=== PATIENT | male | born 1945 | race Two or more races ===

== ENCOUNTER 2024-09-16 15:43 | Inpatient (IN) | payer MEDICARE ==
[2024-09-16] MEDS: SODIUM CHLORIDE 0.9% 1,000 ML IV ONE (16:12)
[2024-09-16] MEDS: LORazepam 2 MG/ML INJ IV STA (16:13)
[2024-09-16 16:16] LABS: Basophils % (A) 0 %; Eosinophils # (A) 0.2 k/uL (0-0.7); Eosinophils % (A) 2 %; HCT 40.8 % (39.0-53.0); HGB 13.4 gm/dL (13.0-17.5); Lymphocytes # (A) 1.5 k/uL (1.0-4.8); Lymphocytes % (A) 14 %; MCH 30.3 pg (25.0-35.0); MCHC 32.7 g/dL (31.0-37.0); MCV 92.6 fL (80.0-100.0); Mean Platelet Volume 6.6; Monocytes # (A) 0.5 k/uL (0-1.0); Monocytes % (A) 5 %; Neutrophils % (A) 77 %; Platelet Count 258 k/uL (150-450); RBC 4.41 m/uL (4.30-5.90); RDW 14.6 % (11.5-15.5); WBC 10.4 k/uL (3.8-10.6)
[2024-09-16 16:22] LABS: Appearance,Urine Clear (Clear); Bilirubin,Urine Negative (Negative); Blood,Urine Negative (Negative); Color,Urine Colorless; Glucose,Urine (UA) Negative (Negative); Ketones,Urine Negative (Negative); Leukocyte Esterase,Urine Negative (Negative); Nitrite,Urine Negative (Negative); PH, Urine 8.5 (5.0-8.0); Protein,Urine Negative (Negative); Specific Gravity,Urine 1.013 (1.001-1.035); Urobilinogen,Urine <2.0 mg/dL (<2.0)
[2024-09-16 16:35] LABS: ALT 27 U/L (4-49); AST 24 U/L (17-59); African American GFR (CKD) >90 (>60 ml/min/1.73 sqM); Albumin 4.1 g/dL (3.5-5.0); Alcohol <10 mg/dL; Alkaline Phosphatase 65 U/L (38-126); Anion Gap 8 mmol/L; Blood Urea Nitrogen 30 mg/dL (9-20); Calcium 9.6 mg/dL (8.4-10.2); Carbon Dioxide 22 mmol/L (22-30); Chloride 110 mmol/L (98-107); Glucose 87 mg/dL (74-99); Non-African American GFR(CKD) >90 (>60 ml/min/1.73 sqM); Potassium 3.7 mmol/L (3.5-5.1); Sodium 140 mmol/L (137-145); Total Bilirubin 1.2 mg/dL (0.2-1.3); Total Protein 6.4 g/dL (6.3-8.2)
--- NOTE | 2024-09-16 16:37 | ED ---
Altered Mental Status HPI - General Chief Complaint: Altered Mental Status Stated Complaint: AMS Time Seen by Provider: 09/16/24 16:03 Source: EMS, RN notes reviewed, old records reviewed Mode of arrival: EMS - History of Present Illness Initial Comments: This is a 79-year-old male for ANO x 1 unresponsiveness altered mental status combativeness and not following directions or commands, patient is allegedly ANO x 3 at baseline and currently not appropriate MD Complaint: altered mental status, confusion, decreased responsiveness -: unknown Severity: severe Consistency of Symptoms: getting worse Associated Symptoms: denies other symptoms - Related Data Home Medications Medication Instructions Recorded Confirmed Aspirin EC [Ecotrin Low Dose] 81 mg PO DAILY 09/17/24 09/17/24 Losartan Potassium 100 mg PO DAILY 09/17/24 09/17/24 Mesalamine 1.2 gm PO DAILY 09/17/24 09/17/24 Vitamin B Complex 1 cap PO DAILY 09/17/24 09/17/24 Previous Rx's Medication Instructions Recorded OLANZapine [ZyPREXA] 2.5 mg PO HS tab 09/23/24 OLANZapine [ZyPREXA] 2.5 mg PO TID PRN tab 09/23/24 Allergies Allergy/AdvReac Type Severity Reaction Status Date / Time No Known Allergies Allergy Unverified 09/17/24 13:06 Review of Systems ROS Statement: Those systems with pertinent positive or pertinent negative responses have been documented in the HPI. ROS Other: All systems not noted in ROS Statement are negative. Past Medical History History of Any Multi-Drug Resistant Organisms: None Reported Past Psychological History: Unable to Obtain Smoking Status: Unknown if ever smoked Past Alcohol Use History: Unable to Obtain Past Drug Use History: Unable to Obtain General Exam General appearance: alert, in no apparent distress Head exam: Present: atraumatic, normocephalic, normal inspection Eye exam: Present: normal appearance, PERRL, EOMI. Absent: scleral icterus, conjunctival injection, periorbital swelling ENT exam: Present: normal exam, mucous membranes moist Neck exam: Present: normal inspection. Absent: tenderness, meningismus, lymphadenopathy Respiratory exam: Present: normal lung sounds bilaterally. Absent: respiratory distress, wheezes, rales, rhonchi, stridor Cardiovascular Exam: Present: regular rate, normal rhythm, normal heart sounds. Absent: systolic murmur, diastolic murmur, rubs, gallop, clicks GI/Abdominal exam: Present: soft, normal bowel sounds. Absent: distended, tenderness, guarding, rebound, rigid Extremities exam: Present: normal inspection, full ROM, normal capillary refill. Absent: tenderness, pedal edema, joint swelling, calf tenderness Back exam: Present: normal inspection Neurological exam: Present: alert, oriented X3, CN II-XII intact Psychiatric exam: Present: normal affect, normal mood Skin exam: Present: warm, dry, intact, normal color. Absent: rash Course Vital Signs 09/16/24 09/16/24 09/16/24 15:44 18:00 20:00 Temperature 97.7 F Pulse Rate 92 60 66 Respiratory 18 16 18 Rate Blood Pressure 165/90 137/86 142/98 O2 Sat by Pulse 98 98 96 Oximetry 09/16/24 21:43 Temperature Pulse Rate 62 Respiratory 18 Rate Blood Pressure 161/81 O2 Sat by Pulse 96 Oximetry - Reevaluation(s) Reevaluation #1: 09/16/24 20:21 Medical records reviewed Reevaluation #2: 09/16/24 20:21 Patient symptoms unchanged Reevaluation #3: 09/16/24 20:21 Patient informed of results and questions answered Reevaluation #4: Was pt. sent in by a medical professional or institution (, PA, PHOTOGRAPHER'S MODEL, urgent care, hospital, or long-term...) When possible be specific @ -no Did you speak to anyone other than the patient for history (EMS, parent, family, police, friend...)? What history was obtained from this source @ -no Did you review nursing and triage notes (agree or disagree)? Why? @ -agree Are old charts reviewed (outside hosp., previous admission, EMS record, old EKG, old radiological studies, urgent care reports/EKG's, long-term records)? Report findings @ -yes Differential Diagnosis (chest pain, altered mental status, abdominal pain women, abdominal pain men, vaginal bleeding, weakness, fever, dyspnea, syncope, headache, dizziness, GI bleed, back pain, seizure, CVA, palpatations, mental health, musculoskeletal)? @ -prior EKG interpreted by me (3pts min.). @ -yes X-rays interpreted by me (1pt min.). @ -Yes negative for acute disease CT interpreted by me (1pt min.). @ -Yes negative for acute disease U/S interpreted by me (1pt. min.). @ -no What testing was considered but not performed or refused? (CT, X-rays, U/S, labs )? Why? @ -none What meds were considered but not given or refused? Why? @ -none Did you discuss the management of the patient with other professionals (professionals i.e. DrDiane, PA, PHOTOGRAPHER'S MODEL, lab, RT, psych nurse, social worker masters, railroad operating engineer, teacher, postal sorting officer, casey saw operator)? Give summary @ -no Was smoking cessation discussed for >3mins.? @ -no Was critical care preformed (if so, how long)? @ -no Were there social determinants of health that impacted care today? How? (Homelessness, low income, unemployed, alcoholism, drug addiction, transportation, low edu. Level, literacy, decrease access to med. care, [facility], rehab)? @ -none Was there de-escalation of care discussed even if they declined (Discuss DNR or withdrawal of care, Hospice)? DNR status @ -no What co-morbidities impacted this encounter? (DM, HTN, Smoking, COPD, CAD, Cancer, CVA, ARF, Chemo, Hep., AIDS, mental health diagnosis, sleep apnea, morbid obesity)? @ -none Was patient admitted / discharged? Hospital course, mention meds given and route, prescriptions, significant lab abnormalities, going to OR and other pertinent info. @ - 79 male to ER for evaluation of altered mental status will admit for further evaluation regards to altered mental status Admit Undiagnosed new problem with uncertain prognosis? @ -no Drug Therapy requiring intensive monitoring for toxicity (Heparin, Nitro, Insulin, Cardizem)? @ -no Were any procedures done? @ -no Diagnosis/symptom? @ -Altered mental status Acute, or Chronic, or Acute on Chronic? @ -Acute Uncomplicated (without systemic symptoms) or Complicated (systemic symptoms)? @ -Complicated Side effects of treatment? @ -no Exacerbation, Progression, or Severe Exacerbation? @ -exacerbation Poses a threat to life or bodily function? How? (Chest pain, [place], [place], pneumonia, PE, COPD, DKA, ARF, appy, cholecystitis, CVA, Diverticulitis, Homicidal, Suicidal, threat to staff... and all critical care pts) @ -yes extremes of age Reevaluation #5: Differential Altered Mental Status: Hypoglycemia, DKA, hypercapnia, ETOH, overdose, CO poisoning, trauma, myxedema coma, HTN encephalopathy, infection, encephalitis, psychosis, intercranial hemorrhage, hepatic encephalopathy, meningitis, CVA, this is not meant to be an all-inclusive list - Consultations Consultation #1: Spoke with Dr. Abdullahi who agrees to admit this patient Medical Decision Making - Medical Decision Making 79 male to ER for evaluation of altered mental status will admit for further evaluation regards to altered mental status - Lab Data Result diagrams: 09/17/24 02:56 09/21/24 03:44 Lab Results 09/16/24 09/16/24 09/16/24 Range/Units 16:08 16:08 16:08 WBC 10.4 (3.8-10.6) k/uL RBC 4.41 (4.30-5.90) m/uL Hgb 13.4 (13.0-17.5) gm/dL Hct 40.8 (39.0-53.0) % MCV 92.6 (80.0-100.0) fL MCH 30.3 (25.0-35.0) pg MCHC 32.7 (31.0-37.0) g/dL RDW 14.6 (11.5-15.5) % Plt Count 258 (150-450) k/uL MPV 6.6 Neutrophils % 77 % Lymphocytes % 14 % Monocytes % 5 % Eosinophils % 2 % Basophils % 0 % Neutrophils # 8.0 H (1.3-7.7) k/uL Lymphocytes # 1.5 (1.0-4.8) k/uL Monocytes # 0.5 (0-1.0) k/uL Eosinophils # 0.2 (0-0.7) k/uL Basophils # 0.0 (0-0.2) k/uL PT 9.9 L (10.0-12.5) sec INR 0.9 (<1.2) APTT 22.8 (22.0-30.0) sec D-Dimer (<0.60) mg/L FEU Sodium (137-145) mmol/L Potassium (3.5-5.1) mmol/L Chloride (98-107) mmol/L Carbon Dioxide (22-30) mmol/L Anion Gap mmol/L BUN (9-20) mg/dL Creatinine (0.66-1.25) mg/dL Est GFR (CKD-EPI)AfAm (>60 ml/min/1.73 sqM) Est GFR (CKD-EPI)NonAf (>60 ml/min/1.73 sqM) Glucose (74-99) mg/dL Calcium (8.4-10.2) mg/dL Total Bilirubin (0.2-1.3) mg/dL AST (17-59) U/L ALT (4-49) U/L Alkaline Phosphatase (38-126) U/L Ammonia (<30) umol/L Troponin I (0.000-0.034) ng/mL Total Protein (6.3-8.2) g/dL Albumin (3.5-5.0) g/dL Globulin g/dL Albumin/Globulin Ratio Vitamin B12 (200.0-944.0) pg/mL Folate (4.40-31.00) ng/mL Procalcitonin (0.02-0.50) ng/mL TSH (0.465-4.680) mIU/L Urine Color Colorless Urine Appearance Clear (Clear) Urine pH 8.5 H (5.0-8.0) Ur Specific [place] 1.013 (1.001-1.035) Urine Protein Negative (Negative) Urine Glucose (UA) Negative (Negative) Urine Ketones Negative (Negative) Urine Blood Negative (Negative) Urine Nitrite Negative (Negative) Urine Bilirubin Negative (Negative) Urine Urobilinogen <2.0 (<2.0) mg/dL Ur Leukocyte Esterase Negative (Negative) Urine Opiates Screen Not Detected (NotDetected) Ur Oxycodone Screen Not Detected (NotDetected) Urine Methadone Screen Not Detected (NotDetected) Ur Barbiturates Screen Not Detected (NotDetected) U Tricyclic Antidepress Not Detected (NotDetected) Ur Phencyclidine Scrn Not Detected (NotDetected) Ur Amphetamines Screen Not Detected (NotDetected) U Methamphetamines Scrn Not Detected (NotDetected) U Benzodiazepines Scrn Not Detected (NotDetected) Urine Cocaine Screen Not Detected (NotDetected) U Marijuana (THC) Screen Not Detected (NotDetected) Serum Alcohol mg/dL 09/16/24 09/16/24 09/16/24 Range/Units 16:08 16:08 16:08 WBC (3.8-10.6) k/uL RBC (4.30-5.90) m/uL Hgb (13.0-17.5) gm/dL Hct (39.0-53.0) % MCV (80.0-100.0) fL MCH (25.0-35.0) pg MCHC (31.0-37.0) g/dL RDW (11.5-15.5) % Plt Count (150-450) k/uL MPV Neutrophils % % Lymphocytes % % Monocytes % % Eosinophils % % Basophils % % Neutrophils # (1.3-7.7) k/uL Lymphocytes # (1.0-4.8) k/uL Monocytes # (0-1.0) k/uL Eosinophils # (0-0.7) k/uL Basophils # (0-0.2) k/uL PT (10.0-12.5) sec INR (<1.2) APTT (22.0-30.0) sec D-Dimer (<0.60) mg/L FEU Sodium 140 (137-145) mmol/L Potassium 3.7 (3.5-5.1) mmol/L Chloride 110 H (98-107) mmol/L Carbon Dioxide 22 (22-30) mmol/L Anion Gap 8 mmol/L BUN 30 H (9-20) mg/dL Creatinine 0.55 L (0.66-1.25) mg/dL Est GFR (CKD-EPI)AfAm >90 (>60 ml/min/1.73 sqM) Est GFR (CKD-EPI)NonAf >90 (>60 ml/min/1.73 sqM) Glucose 87 (74-99) mg/dL Calcium 9.6 (8.4-10.2) mg/dL Total Bilirubin 1.2 (0.2-1.3) mg/dL AST 24 (17-59) U/L ALT 27 (4-49) U/L Alkaline Phosphatase 65 (38-126) U/L Ammonia <9 (<30) umol/L Troponin I <0.012 (0.000-0.034) ng/mL Total Protein 6.4 (6.3-8.2) g/dL Albumin 4.1 (3.5-5.0) g/dL Globulin g/dL Albumin/Globulin Ratio Vitamin B12 (200.0-944.0) pg/mL Folate (4.40-31.00) ng/mL Procalcitonin (0.02-0.50) ng/mL TSH (0.465-4.680) mIU/L Urine Color Urine Appearance (Clear) Urine pH (5.0-8.0) Ur Specific [place] (1.001-1.035) Urine Protein (Negative) Urine Glucose (UA) (Negative) Urine Ketones (Negative) Urine Blood (Negative) Urine Nitrite (Negative) Urine Bilirubin (Negative) Urine Urobilinogen (<2.0) mg/dL Ur Leukocyte Esterase (Negative) Urine Opiates Screen (NotDetected) Ur Oxycodone Screen (NotDetected) Urine Methadone Screen (NotDetected) Ur Barbiturates Screen (NotDetected) U Tricyclic Antidepress (NotDetected) Ur Phencyclidine Scrn (NotDetected) Ur Amphetamines Screen (NotDetected) U Methamphetamines Scrn (NotDetected) U Benzodiazepines Scrn (NotDetected) Urine Cocaine Screen (NotDetected) U Marijuana (THC) Screen (NotDetected) Serum Alcohol <10 mg/dL 09/17/24 09/17/24 09/17/24 Range/Units 00:25 00:25 00:25 WBC (3.8-10.6) k/uL RBC (4.30-5.90) m/uL Hgb (13.0-17.5) gm/dL Hct (39.0-53.0) % MCV (80.0-100.0) fL MCH (25.0-35.0) pg MCHC (31.0-37.0) g/dL RDW (11.5-15.5) % Plt Count (150-450) k/uL MPV Neutrophils % % Lymphocytes % % Monocytes % % Eosinophils % % Basophils % % Neutrophils # (1.3-7.7) k/uL Lymphocytes # (1.0-4.8) k/uL Monocytes # (0-1.0) k/uL Eosinophils # (0-0.7) k/uL Basophils # (0-0.2) k/uL PT (10.0-12.5) sec INR (<1.2) APTT (22.0-30.0) sec D-Dimer 0.54 (<0.60) mg/L FEU Sodium (137-145) mmol/L Potassium (3.5-5.1) mmol/L Chloride (98-107) mmol/L Carbon Dioxide (22-30) mmol/L Anion Gap mmol/L BUN (9-20) mg/dL Creatinine (0.66-1.25) mg/dL Est GFR (CKD-EPI)AfAm (>60 ml/min/1.73 sqM) Est GFR (CKD-EPI)NonAf (>60 ml/min/1.73 sqM) Glucose (74-99) mg/dL Calcium (8.4-10.2) mg/dL Total Bilirubin (0.2-1.3) mg/dL AST (17-59) U/L ALT (4-49) U/L Alkaline Phosphatase (38-126) U/L Ammonia (<30) umol/L Troponin I (0.000-0.034) ng/mL Total Protein (6.3-8.2) g/dL Albumin (3.5-5.0) g/dL Globulin g/dL Albumin/Globulin Ratio Vitamin B12 430.0 (200.0-944.0) pg/mL Folate 19.90 (4.40-31.00) ng/mL Procalcitonin (0.02-0.50) ng/mL TSH 2.510 (0.465-4.680) mIU/L Urine Color Urine Appearance (Clear) Urine pH (5.0-8.0) Ur Specific [place] (1.001-1.035) Urine Protein (Negative) Urine Glucose (UA) (Negative) Urine Ketones (Negative) Urine Blood (Negative) Urine Nitrite (Negative) Urine Bilirubin (Negative) Urine Urobilinogen (<2.0) mg/dL Ur Leukocyte Esterase (Negative) Urine Opiates Screen (NotDetected) Ur Oxycodone Screen (NotDetected) Urine Methadone Screen (NotDetected) Ur Barbiturates Screen (NotDetected) U Tricyclic Antidepress (NotDetected) Ur Phencyclidine Scrn (NotDetected) Ur Amphetamines Screen (NotDetected) U Methamphetamines Scrn (NotDetected) U Benzodiazepines Scrn (NotDetected) Urine Cocaine Screen (NotDetected) U Marijuana (THC) Screen (NotDetected) Serum Alcohol mg/dL 09/17/24 09/17/24 09/17/24 Range/Units 00:25 00:25 02:56 WBC 7.5 (3.8-10.6) k/uL RBC 4.06 L (4.30-5.90) m/uL Hgb 12.1 L (13.0-17.5) gm/dL Hct 37.5 L (39.0-53.0) % MCV 92.4 (80.0-100.0) fL MCH 29.9 (25.0-35.0) pg MCHC 32.3 (31.0-37.0) g/dL RDW 14.4 (11.5-15.5) % Plt Count 211 (150-450) k/uL MPV 7.9 Neutrophils % 70 % Lymphocytes % 17 % Monocytes % 7 % Eosinophils % 4 % Basophils % 0 % Neutrophils # 5.3 (1.3-7.7) k/uL Lymphocytes # 1.3 (1.0-4.8) k/uL Monocytes # 0.5 (0-1.0) k/uL Eosinophils # 0.3 (0-0.7) k/uL Basophils # 0.0 (0-0.2) k/uL PT (10.0-12.5) sec INR (<1.2) APTT (22.0-30.0) sec D-Dimer (<0.60) mg/L FEU Sodium (137-145) mmol/L Potassium (3.5-5.1) mmol/L Chloride (98-107) mmol/L Carbon Dioxide (22-30) mmol/L Anion Gap mmol/L BUN (9-20) mg/dL Creatinine (0.66-1.25) mg/dL Est GFR (CKD-EPI)AfAm (>60 ml/min/1.73 sqM) Est GFR (CKD-EPI)NonAf (>60 ml/min/1.73 sqM) Glucose (74-99) mg/dL Calcium (8.4-10.2) mg/dL Total Bilirubin (0.2-1.3) mg/dL AST (17-59) U/L ALT (4-49) U/L Alkaline Phosphatase (38-126) U/L Ammonia 10 (<30) umol/L Troponin I (0.000-0.034) ng/mL Total Protein (6.3-8.2) g/dL Albumin (3.5-5.0) g/dL Globulin g/dL Albumin/Globulin Ratio Vitamin B12 (200.0-944.0) pg/mL Folate (4.40-31.00) ng/mL Procalcitonin 0.08 (0.02-0.50) ng/mL TSH (0.465-4.680) mIU/L Urine Color Urine Appearance (Clear) Urine pH (5.0-8.0) Ur Specific [place] (1.001-1.035) Urine Protein (Negative) Urine Glucose (UA) (Negative) Urine Ketones (Negative) Urine Blood (Negative) Urine Nitrite (Negative) Urine Bilirubin (Negative) Urine Urobilinogen (<2.0) mg/dL Ur Leukocyte Esterase (Negative) Urine Opiates Screen (NotDetected) Ur Oxycodone Screen (NotDetected) Urine Methadone Screen (NotDetected) Ur Barbiturates Screen (NotDetected) U Tricyclic Antidepress (NotDetected) Ur Phencyclidine Scrn (NotDetected) Ur Amphetamines Screen (NotDetected) U Methamphetamines Scrn (NotDetected) U Benzodiazepines Scrn (NotDetected) Urine Cocaine Screen (NotDetected) U Marijuana (THC) Screen (NotDetected) Serum Alcohol mg/dL 09/17/24 Range/Units 02:56 WBC (3.8-10.6) k/uL RBC (4.30-5.90) m/uL Hgb (13.0-17.5) gm/dL Hct (39.0-53.0) % MCV (80.0-100.0) fL MCH (25.0-35.0) pg MCHC (31.0-37.0) g/dL RDW (11.5-15.5) % Plt Count (150-450) k/uL MPV Neutrophils % % Lymphocytes % % Monocytes % % Eosinophils % % Basophils % % Neutrophils # (1.3-7.7) k/uL Lymphocytes # (1.0-4.8) k/uL Monocytes # (0-1.0) k/uL Eosinophils # (0-0.7) k/uL Basophils # (0-0.2) k/uL PT (10.0-12.5) sec INR (<1.2) APTT (22.0-30.0) sec D-Dimer (<0.60) mg/L FEU Sodium 136 L (137-145) mmol/L Potassium 3.5 (3.5-5.1) mmol/L Chloride 110 H (98-107) mmol/L Carbon Dioxide 23 (22-30) mmol/L Anion Gap 3 mmol/L BUN 21 H (9-20) mg/dL Creatinine 0.51 L (0.66-1.25) mg/dL Est GFR (CKD-EPI)AfAm >90 (>60 ml/min/1.73 sqM) Est GFR (CKD-EPI)NonAf >90 (>60 ml/min/1.73 sqM) Glucose 77 (74-99) mg/dL Calcium 8.8 (8.4-10.2) mg/dL Total Bilirubin 1.4 H (0.2-1.3) mg/dL AST 25 (17-59) U/L ALT 25 (4-49) U/L Alkaline Phosphatase 71 (38-126) U/L Ammonia (<30) umol/L Troponin I (0.000-0.034) ng/mL Total Protein 5.7 L (6.3-8.2) g/dL Albumin 3.5 (3.5-5.0) g/dL Globulin 2.2 g/dL Albumin/Globulin Ratio 1.6 Vitamin B12 (200.0-944.0) pg/mL Folate (4.40-31.00) ng/mL Procalcitonin (0.02-0.50) ng/mL TSH (0.465-4.680) mIU/L Urine Color Urine Appearance (Clear) Urine pH (5.0-8.0) Ur Specific [place] (1.001-1.035) Urine Protein (Negative) Urine Glucose (UA) (Negative) Urine Ketones (Negative) Urine Blood (Negative) Urine Nitrite (Negative) Urine Bilirubin (Negative) Urine Urobilinogen (<2.0) mg/dL Ur Leukocyte Esterase (Negative) Urine Opiates Screen (NotDetected) Ur Oxycodone Screen (NotDetected) Urine Methadone Screen (NotDetected) Ur Barbiturates Screen (NotDetected) U Tricyclic Antidepress (NotDetected) Ur Phencyclidine Scrn (NotDetected) Ur Amphetamines Screen (NotDetected) U Methamphetamines Scrn (NotDetected) U Benzodiazepines Scrn (NotDetected) Urine Cocaine Screen (NotDetected) U Marijuana (THC) Screen (NotDetected) Serum Alcohol mg/dL - EKG Data -: EKG Interpreted by Me (EKG is sinus 66 CT 221 QRS 88 QTc 418) - Radiology Data Radiology results: report reviewed (Chest x-ray CT brain C-spine negative for acute disease), image reviewed Disposition Clinical Impression: Altered mental status Disposition: ADMITTED IP TO THIS HOSP Is patient prescribed a controlled substance at d/c from ED?: No Time of Disposition: 20:20
[2024-09-16 16:44] LABS: Amphetamine Screen,Urine Not Detected (NotDetected); Barbiturate Screen,Urine Not Detected (NotDetected); Benzodiazepines Screen,Urine Not Detected (NotDetected); Cocaine Screen,Urine Not Detected (NotDetected); INR 0.9 (<1.2); Methadone Screen, Urine Not Detected (NotDetected); Opiate Screen,Urine Not Detected (NotDetected); Oxycodone Screen, Urine Not Detected (NotDetected); Partial Thromboplastin Time 22.8 sec (22.0-30.0); Phencyclidine Screen,Urine Not Detected (NotDetected); Prothrombin Time 9.9 sec (10.0-12.5); Tricyclic Antidepressant,Urine Not Detected (NotDetected); Urn Cannabinoid Scrn Not Detected (NotDetected)
--- NOTE | 2024-09-16 17:16 | XR ---
EXAMINATION TYPE: XR chest 1V portable DATE OF EXAM: 09/16/2024 4:37 PM CLINICAL INDICATION: Male, 79 years old with history of altered mental status; COMPARISON: None TECHNIQUE: XR chest 1V portable Frontal view of the chest. FINDINGS: Lungs/Pleura: There is no evidence of pleural effusion, focal consolidation, or pneumothorax. Pulmonary vascularity: Unremarkable. Heart/mediastinum: Cardiomediastinal silhouette is unremarkable. Musculoskeletal: No acute osseous pathology. Other findings: None IMPRESSION: No acute cardiopulmonary disease/process. [facility], , 09/16/2024 5:13 PM
--- NOTE | 2024-09-16 18:50 | CT ---
EXAMINATION TYPE: CT brain cspine wo con CT DLP: 1330.5 mGycm, Automated exposure control for dose reduction was used. DATE OF EXAM: 09/16/2024 6:26 PM COMPARISON: None. CLINICAL INDICATION: Male, 79 years old with history of fall; fall TECHNIQUE: Brain: Multiple axial CT images of the brain were obtained without IV contrast. Cspine: Axial CT images from the skull base to the inferior aspect of T2 we obtained without intraven ous contrast. Coronal and sagittal reformatted images were also reviewed. . FINDINGS: Brain: Extra-axial spaces: No abnormal extra-axial fluid collections. Ventricular system: Dilatation in proportion to cerebral atrophy. Cerebral parenchyma: Cerebral atrophy. No acute intraparenchymal hemorrhage or mass effect. The wise -white junction is well differentiated. Scattered hypoattenuating areas are seen within the white mat ter. Cerebellum: Unremarkable. Mass effect: No evidence of midline shift. Intracranial vasculature: Atherosclerotic calcifications of the intracranial vessels. Soft tissues: Normal. Calvarium/osseous structures: No depressed skull fracture. Paranasal sinuses and mastoid air cells: Clear. Visualized orbits: Orbital contents are intact. Cervical spine: Fracture: None. Osseous structures: Multilevel degenerative disc disease changes with endplate spurring and disc oste ophyte complex's. Vertebral alignment: Grade 1 anterolisthesis of C7 on T1. Spinal canal/Neural Foramina: No evidence of significant spinal canal narrowing. No evidence for sign ificant neural foraminal stenosis. Neck soft tissues: Prevertebral soft tissues are within normal limits. Other: The airway is patent. The lung apices are clear. Nuchal ligament calcifications present. IMPRESSION: 1. No acute intracranial process. 2. Nonspecific white matter changes, likely secondary to chronic small vessel ischemic disease. 3. No evidence of cervical spine fracture. 4. Mild multilevel degenerative disc disease. [facility], , 09/16/2024 6:47 PM
[2024-09-16] MEDS ORDERED: NALOXONE 0.4 MG/ML 1 ML VIAL IV PRN (20:19)
[2024-09-16] MEDS ORDERED: ONDANSETRON 4 MG/2 ML VIAL IVP PRN (20:19)
[2024-09-16] MEDS ORDERED: hydrALAZINE HCL 20 MG/ML 1 ML VIAL IVP PRN (23:29)
--- NOTE | 2024-09-17 01:14 | HP ---
HISTORY AND PHYSICAL HISTORY OF PRESENT ILLNESS: A 79-year-old male, alert and oriented x1, altered mental status, combativeness, not following directions and commands. He is alert and oriented x3 at baseline, but is currently not appropriate with altered mental status, confusion, decreased responsiveness, severe, getting worse. HOME MEDICATIONS: Unable to assess. ALLERGIES: Unable to assess. REVIEW OF SYSTEMS: 14-point review of systems not obtainable. PAST MEDICAL HISTORY: Negative as far as we know. PHYSICAL EXAMINATION: GENERAL: He is alert and oriented x1. No acute distress. HEENT: Head normocephalic, atraumatic. Pupils equal, round, reactive to light and accommodation. LUNGS: Transmitted upper sounds. CARDIOVASCULAR: S1, S2. GI: Soft, nontender. NEUROLOGIC: Cranial nerves intact. ASSESSMENT: Altered mental status, unclear etiology. Get Neurology involved. CT of the head was reviewed. Labs were reviewed. Nothing out of the ordinary. Drug screen negative. Urine is negative. Urine and kidney functions negative. High BUN, possibly some dehydration. Monitor him overnight. EKG, sinus rhythm. Please see further orders. Prognosis is guarded. Wait for Neurology. MMODL / IJN: [id number] /
[2024-09-17 04:29] LABS: Basophils % (A) 0 %; Eosinophils # (A) 0.3 k/uL (0-0.7); Eosinophils % (A) 4 %; HCT 37.5 % (39.0-53.0); HGB 12.1 gm/dL (13.0-17.5); Lymphocytes # (A) 1.3 k/uL (1.0-4.8); Lymphocytes % (A) 17 %; MCH 29.9 pg (25.0-35.0); MCHC 32.3 g/dL (31.0-37.0); MCV 92.4 fL (80.0-100.0); Mean Platelet Volume 7.9; Monocytes # (A) 0.5 k/uL (0-1.0); Monocytes % (A) 7 %; Neutrophils # (A) 5.3 k/uL (1.3-7.7); Neutrophils % (A) 70 %; Platelet Count 211 k/uL (150-450); RBC 4.06 m/uL (4.30-5.90); RDW 14.4 % (11.5-15.5); WBC 7.5 k/uL (3.8-10.6)
[2024-09-17 05:07] LABS: ALT 25 U/L (4-49); AST 25 U/L (17-59); African American GFR (CKD) >90 (>60 ml/min/1.73 sqM); Albumin 3.5 g/dL (3.5-5.0); Albumin/Globulin Ratio 1.6; Alkaline Phosphatase 71 U/L (38-126); Anion Gap 3 mmol/L; Blood Urea Nitrogen 21 mg/dL (9-20); Calcium 8.8 mg/dL (8.4-10.2); Carbon Dioxide 23 mmol/L (22-30); Chloride 110 mmol/L (98-107); Globulin 2.2 g/dL; Glucose 77 mg/dL (74-99); Non-African American GFR(CKD) >90 (>60 ml/min/1.73 sqM); Potassium 3.5 mmol/L (3.5-5.1); Sodium 136 mmol/L (137-145); Total Bilirubin 1.4 mg/dL (0.2-1.3); Total Protein 5.7 g/dL (6.3-8.2)
--- NOTE | 2024-09-17 07:30 | XR ---
EXAMINATION TYPE: XR chest 1V portable DATE OF EXAM: 09/17/2024 6:55 AM CLINICAL INDICATION: Male, 79 years old with history of htn; COMPARISON: Chest radiographs from 09/16/2024 TECHNIQUE: XR chest 1V portable Frontal view of the chest. FINDINGS: Lungs/Pleura: There is no evidence of pleural effusion, focal consolidation, or pneumothorax. Pulmonary vascularity: Unremarkable. Heart/mediastinum: Cardiomediastinal silhouette is unremarkable. Musculoskeletal: No acute osseous pathology. Other findings: None IMPRESSION: No acute cardiopulmonary disease/process. [facility], , 09/17/2024 7:27 AM
[2024-09-17] MEDS: SODIUM CHLORIDE 0.9% 1,000 ML IV SCH (11:51)
[2024-09-17] MEDS: LOSARTAN 50 MG TAB PO SCH (12:09)
--- NOTE | 2024-09-17 12:53 | P.CN ---
Psychiatric Consult - . Consult date: 09/17/24 Consult:: 09/17/24 12:45 IDENTIFYING DATA: This patient is a 79-year-old male currently staying at [facility] REASON FOR REFERRAL: Psychiatry was consulted for AMS HISTORY OF PRESENT ILLNESS: The patient presented to the hospital Via EMS due to AMS. Patient reportedly was A and O x 3 at baseline however presented as A and O x 1 and was unresponsive, combative. Imaging thus far has been largely unremarkable including chest x-ray, CT head, EKG. Patient seen and evaluated at bedside however he was a poor historian and was A&O x 1 to self only. He was able to state the food was pretty good at the hospital and that this was his first time eating in 2 days. RN states patient has not exhibited any behaviors thus far today. At this time patient denies any suicidal or homical ideations, intent or plan. Patient denies any auditory, visual hallucinations and denies any paranoia or delusions. PAST PSYCHIATRIC HISTORY: Unable to assess given patient's cognition PAST MEDICAL HISTORY: Unable to assess. ALLERGIES: as per EMR. CHEMICAL DEPENDENCY HISTORY: as per HPI. SOCIAL HISTORY: Patient currently staying at [facility] per chart review however patient states he is currently living with his MENTAL STATUS EXAM: General Appearance: Patient appears to be stated age is alert, pleasant, and cooperative. Patient appears to have fair hygiene and grooming wearing hospital gown with poor eye contact. Behavior: Patient is calmly lying in bed without any agitated behavior. Speech: Patient's speech is brief and at a slowed rate Mood/Affect: Patient reports their mood is "okay", affect is constricted Suicidality/Homicidality: Patient denies having any suicidal or homicidal ideation intent or plan. Perceptions: Patient denies any visual hallucinations and denies any auditory hallucinations Though content/process: There is no evidence of any delusional thought content and thought process is linear and goal-directed. Memory and concentration: AOX 1 to self only Judgment and insight: Poor IMPRESSIONS: Delirium PLAN: -At this time patient DOES NOT meet criteria for inpatient psychiatric admission. -Delirium precautions recommended with patient including - avoiding use of narcotics and MITER CUTTER sedatives, limit anticholinergic medications when possible, frequent re-orientation, minimize use of restraints, open window shades during the day and close them at night -Would recommend the following medication changes/additions: Low-dose Zyprexa as needed if patient becomes an acute safety concern -Communicated plan to patient's nurse -Psychiatry will sign off at this time -Please contact with any questions. 09/17/24 12:47
--- NOTE | 2024-09-17 14:28 | CA ---
Transthoracic Echo Report Name: Erik Rodrigues Age: 79 Gender: M : 1945 Exam Date: 09/17/2024 08:02 Exam Location: [facility] Ht (in): 72 Wt (lb): 140 Ordering Physician: Timmy Abdullahi MD Attending/Referring Phys: Senior Mainframe Programmer Analyst Nieves Le RDCS Procedure CPT: Indications: HTN Cardiac Hx: Technical Quality: Poor, Technically difficult study Contrast 1: Definity Total Dose (mL): 2 Contrast 2: Total Dose (mL): MEASUREMENTS (Male / Female) Normal Values 2D ECHO LV Diastolic Diameter PLAX 3.1 cm 4.2 - 5.9 / 3.9 - 5.3 cm LV Systolic Diameter PLAX 2.0 cm IVS Diastolic Thickness 1.1 cm 0.6 - 1.0 / 0.6 - 0.9 cm LVPW Diastolic Thickness 1.0 cm 0.6 - 1.0 / 0.6 - 0.9 cm LV Relative Wall Thickness 0.7 RV Internal Dim ED PLAX 2.1 cm LA Systolic Diameter LX 3.9 cm 3.0 - 4.0 / 2.7 - 3.8 cm LA Volume 43.2 cm??? 18 - 58 / 22 - 52 cm??? LA Volume Index 24.2 cm???/m??? 16 - 28 cm???/m??? M-MODE Aortic Root Diameter MM 2.8 cm LA Systolic Diameter MM 3.7 cm LA Ao Ratio MM 1.3 DOPPLER AV Peak Velocity 126.9 cm/s AV Peak Gradient 6.4 mmHg MV Area PHT 2.8 cm??? Mitral E Point Velocity 58.5 cm/s Mitral A Point Velocity 71.5 cm/s Mitral E to A Ratio 0.8 MV Deceleration Time 271.7 ms TR Peak Velocity 233.5 cm/s TR Peak Gradient 21.8 mmHg Right Ventricular Systolic Press 26.8 mmHg FINDINGS Left Ventricle Left ventricular ejection fraction is estimated at 60-65%. Normal left ventricular systolic function with no obvious regional wall motion abnormalities. Left ventricular cavity size normal. Right Ventricle Moderate right ventricular dilatation. Right ventricular systolic pressure within normal limits. Right Atrium Normal right atrial size. Left Atrium Normal left atrial size. Mitral Valve Structurally normal mitral valve. Trace mitral regurgitation. No mitral stenosis. Aortic Valve Trileaflet aortic valve. No aortic valve stenosis or regurgitation. Tricuspid Valve Structurally normal tricuspid valve. Trace to mild tricuspid regurgitation. No tricuspid stenosis. Pulmonic Valve Pulmonic valve not well visualized. Pericardium No pericardial or pleural effusion. Aorta Normal size aortic root and proximal ascending aorta. CONCLUSIONS Left ventricular ejection fraction 60-65% RVSP 27 Trace mitral regurgitation Trace to mild tricuspid regurgitation No pericardial effusion Previewed by: Dr. Carrington Finn DO (Electronically Signed) Final Date: 17 September 2024 14:27
[2024-09-17] MEDS: BALSALAZIDE DISODIUM 750 MG CAPSULE PO SCH (15:23)
[2024-09-17] MEDS: OLANZapine 2.5 MG TAB PO PRN (15:23)
--- NOTE | 2024-09-17 20:29 | P.PN ---
Progress Note - Text Progress Note Date: 09/17/24 History of presenting complaint: Patient admitted with increasing confusion and falls. Follows with Chucho Escalera I obtained more information for patient's power of immigration attorney Juany telephone number [phone]. She is the [id number]. Patient was living in a condo with his . Order. Time patient is become progressively losing his memory. Was still able to get around. He started falling. For last 3 months patient was put into a vela around words. Patient the last 2 weeks patient's memory even became much worse. Would not remember even the different rooms. In the last week to 10 days patient also noticed to be shaking. Patient had been losing which weight gradually over some time. Loss of weight loss. He was put on dexamethasone by his visiting physician. Patient is diagnosed in the past with inclusion body myositis. Last few days patient had multiple falls. Patient himself does not really make much sense in terms of giving history. Will speak occasional words. Then he is mixed of his sentences. Active Medications Aspirin (Aspirin 81 Mg) 81 mg PO DAILY [facility] Atorvastatin Calcium (Atorvastatin 40 Mg Tab) 40 mg PO HS [facility] Balsalazide (Balsalazide Disodium 750 Mg Capsule) 2,250 mg PO TID [facility] Last Admin: 09/17/24 15:23 Dose: 2,250 mg Dexamethasone (Dexamethasone 4 Mg Tab) 4 mg PO DAILY [facility] Enoxaparin Sodium (Enoxaparin 40 Mg/0.4 Ml Syringe) 40 mg SQ DAILY [facility] Hydralazine HCl (Hydralazine Hcl 20 Mg/Ml 1 Ml Vial) 10 mg IVP Q6HR PRN PRN Reason: Blood Pressure - High Losartan Potassium (Losartan 50 Mg Tab) 100 mg PO DAILY [facility] Last Admin: 09/17/24 12:09 Dose: 100 mg Memantine (Memantine 5 Mg Tab) 5 mg PO HS [facility] Naloxone HCl (Naloxone 0.4 Mg/Ml 1 Ml Vial) 0.2 mg IV Q2M PRN PRN Reason: Opioid Reversal Olanzapine (Olanzapine 2.5 Mg Tab) 2.5 mg PO TID PRN PRN Reason: Agitation Last Admin: 09/17/24 15:23 Dose: 2.5 mg Olanzapine (Olanzapine 10 Mg Vial) 5 mg IM BID PRN PRN Reason: Agitation Ondansetron HCl (Ondansetron 4 Mg/2 Ml Vial) 4 mg IVP Q8HR PRN PRN Reason: Nausea And Vomiting On examination: VITAL SIGNS: [98, 75, 18, 153 x 64, 98% room air] GENERAL APPEARANCE: Laying in bed, a bit restless. BMI 19.0 HEENT: Normal external appearance of nose and ear. Oral cavity normal EYES: Pupils equal. Conjunctiva normal. NECK: JVD not raised. Mass not palpable. RESPIRATORY: Respiratory effort normal. Lungs clear to auscultation. CARDIOVASCULAR: First and second sounds normal. No edema. ABDOMEN: Soft. Liver and spleen not palpable. No tenderness. No mass palpable. PSYCHIATRY: Patient can tell his name. Cannot really hold a conversation. Jumps from 1 were to the other. MUSCULOSKELETAL: Loss of subcutaneous fat and loss of muscle. Prominent bones NEUROLOGICAL: Tremors specially in the upper extremity.. INVESTIGATIONS, reviewed in the clinical context: September 17: White count 7.5 hemoglobin 12.1 platelets 211 sodium 136 potassium 3.5 BUN 21 creatinine 0.51 B12 430 folate 19.9 procalcitonin 0.08 TSH 2.5 UA: Negative Urine drug screen negative EKG tracing normal sinus rhythm. First-degree AV block. Chest x-ray film: Agnes acute CT scan head: Chronic changes. 2D echo: EF 60 to 65%. 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 Patient has the significant muscle weakness. This is a progressive disorder. In view of that. Discontinue Lipitor -Severe protein calorie malnutrition. Patient loss of muscle mass subcutaneous fat. Ensure. One-to-one feeding. -Tremors that could be myoclonus. Given myopathy. Neurology is consulted -Acute on chronic medical debility. As per the [id number] patient has been started falling more frequently. Likely from the myopathy. And weakness. PT OT. -Anorexia probably from underlying chronic disease Stop dexamethasone. Try Marinol 5 mg AC twice daily -Severe cognitive impairment. Patient's B12, folate, normal. TSH normal. Given severe dementia rule out Namenda limited. Will discontinue the same -Essential hypertension Cozaar -Full code -Medical power of immigration attorneyElsa. [phone] I spoke at length to patient's [id number] medical power of immigration attorney. Total time spent today was about 50 minutes.
[2024-09-17] MEDS ORDERED: ATORVASTATIN 40 MG TAB PO SCH (21:00)
[2024-09-17] MEDS: MEMANTINE 5 MG TAB PO SCH (21:22)
[2024-09-17] MEDS: ENOXAPARIN 40 MG/0.4 ML SYRINGE SQ SCH (21:22)
[2024-09-18] MEDS: droNABinol 2.5 MG CAP PO SCH (06:35)
[2024-09-18] MEDS ORDERED: dexAMETHasone 4 MG TAB PO SCH (09:00)
[2024-09-18] MEDS: ASPIRIN 81 MG PO SCH (10:14)
--- NOTE | 2024-09-18 10:28 | P.CNNES ---
History of Present Illness Consult date: 09/17/24 Requesting physician: Jesus Avendano Reason for Consult: Altered mental status History of Present Illness: Patient is a 79-year-old male with some history of dementia came to the hospital by ambulance yesterday at 3:43 PM. Patient is extremely confused, not able to provide any history. Patient appears very hard of hearing in the beginning although later he was able to hear somewhat better. Patient is speaking nonsensical speech. Some of the sentences he said "I have seen 2-3 just like this". Please refer to examination below. Per nursing report, at baseline he is not confused, although he does have dementia. He resides at [facility]. As per EMS flowsheet when they arrived, patient was in care of staff. Staff mentions that patient has dementia and has experienced multiple falls for the last 1 week. Patient is unable to tell staff if he has any loss of consciousness. Patient is not on blood thinners. Patient was found pale and cold by staff. Patient has uncontrollable tremors. Staff mentioned that patient is more altered than normal with unsteady gait. Patient is alert and orient x 1, normally is alert and orient x 3. Patient complains of pain all over, but unable to tell EMS where the pain is. No nausea or vomiting. Negative on stroke scale. Patient's vitals at the scene was blood pressure 144/72, pulse rate 73, saturation 97%, respirations 16 and blood glucose 156. Temperature 36.9. Blood test shows normal CBC, PT PTT. Electrolytes are normal. BUN 30, creatinine 0.55. Hepatic panel is normal. B12 430, folate 19.9, TSH normal. UA negative urine drug screen negative. Blood alcohol level negative. Chest x- ray showed no acute cardiopulmonary process. EKG showed sinus rhythm with first-degree AV block. CT head revealed no acute intracranial process. Nonspecific white matter changes likely secondary to chronic small vessel ischemic disease. No evidence of cervical spine fracture on CT of the cervical spine. Mild multilevel degenerative disc disease. I personally reviewed CT head and agree with the findings. Patient has evidence of old lacunar in the right clark. Ventricles are slightly prominent, as compared to the amount of cortical atrophy. Patient's home medications include Decadron 4 mg daily, Namenda 5 mg at bedtime, Lipitor 40 mg aspirin 81 mg and losartan 100 mg. Review of Systems ROS unobtainable: due to mental status Past Medical History Past Medical History: Hyperlipidemia, Hypertension Additional Past Medical History / Comment(s): IBM, jaw and back surgery. History of Any Multi-Drug Resistant Organisms: None Reported Past Surgical History: Hernia Repair, Orthopedic Surgery Past Psychological History: Unable to Obtain Smoking Status: Unknown if ever smoked Past Alcohol Use History: Unable to Obtain Past Drug Use History: Unable to Obtain Medications and Allergies Home Medications Medication Instructions Recorded Confirmed Type Aspirin EC [Ecotrin Low Dose] 81 mg PO DAILY 09/17/24 09/17/24 History Atorvastatin [Lipitor] 40 mg PO HS 09/17/24 09/17/24 History Losartan Potassium 100 mg PO DAILY 09/17/24 09/17/24 History Memantine [Namenda] 5 mg PO HS 09/17/24 09/17/24 History Mesalamine 1.2 gm PO DAILY 09/17/24 09/17/24 History Vitamin B Complex 1 cap PO DAILY 09/17/24 09/17/24 History dexAMETHasone [Decadron] 4 mg PO DAILY 09/17/24 09/17/24 History Allergies Allergy/AdvReac Type Severity Reaction Status Date / Time No Known Allergies Allergy Unverified 09/17/24 13:06 Physical Examination - Vital Signs Vital Signs: Vital Signs Temp Pulse Pulse Resp BP BP Pulse Ox 09/17/24 14:00 97.5 F L 72 18 127/67 97 09/17/24 13:56 97.5 F L 72 18 127/67 97 09/17/24 12:05 168/86 09/17/24 07:31 97.3 F L 62 16 132/72 99 09/17/24 02:07 97.6 F 78 14 160/87 99 09/16/24 22:42 97.5 F L 63 16 157/74 100 09/16/24 21:43 62 18 161/81 96 09/16/24 20:00 66 18 142/98 96 09/16/24 18:00 60 16 137/86 98 09/16/24 15:44 97.7 F 92 18 165/90 98 Intake and Output 09/17/24 09/17/24 09/17/24 06:59 14:59 22:59 Intake Total 350 Output Total 700 Balance -350 Intake: Oral 350 Output: Urine 700 Other: # Voids 8 Patient is an elderly male, who is laying in the bed, appears very confused, dangling his legs over the side rail. He is very cachectic with protein calorie malnutrition. Patient is alert awake, but very confused. He appears to be very hard of hearing at times, but also appears aphasic. Patient is having significant paraphasic errors. Patient is naming shows significant paraphasic errors. Patient said "Meryl" for pen, "cars" for eyeglasses, "hair" for ear, "cone,cond" for collar. Patient states he is 68 years old and thinks is the month of March. Patient states "I cannot say". Patient then yells "girls! Hey girls" "I do not know what the hell I am doing". Then he shouts for "Monique", whom he states is his . He states he has 1 child named Eloy. Patient speaks random incomplete sentences like "I tried to do", I am not working", "I do not need". "They got me". Patient denies headache. Denies dizziness. On asking where he is living currently, patient states "right now we are living at our place". Attention, concentration and fund of knowledge are all severely limited. On cranial nerve examination, pupils are equal, round and reacting to light, p atient does not blink to visual threat on the right as compared to the left. Extraocular muscles are intact with no nystagmus. Face is symmetric. Patient did not cooperate for evaluation of the lower cranial nerves. He appears hard of hearing. On muscle strength testing, there is no obvious pronator drift although patient did not cooperate. His biceps triceps appears normal. His flight control manager was equal. He did not cooperate for testing of the lower extremities although he is moving his legs equally. Deep tendon reflexes are symmetric and diminished, plantars withdrawal. Sensory to touch cannot be assessed, but he withdraws to painful stimuli equally Cerebellar function could not be checked because he would not cooperate. Tone is normal and bulk of muscles decreased. Gait deferred.. On general examination, there is no carotid bruit or murmur, S1-S2 audible. Chest is clear on consultation. Abdomen is soft nontender. No organomegaly, bowel sounds present. Peripheral pulses are present. No peripheral edema. Patient has diapers on. Patient abruptly started yelling he wants to pee, pulled his penis from the side of the diaper and urinated on his legs, and on the bed. Results - Laboratory Findings CBC and BMP: 09/17/24 02:56 09/17/24 02:56 Abnormal Lab Findings: Abnormal Labs 09/16/24 09/16/24 09/16/24 16:08 16:08 16:08 RBC Hgb Hct Neutrophils # 8.0 H PT 9.9 L Sodium Chloride BUN Creatinine Total Bilirubin Total Protein Urine pH 8.5 H 09/16/24 09/17/24 09/17/24 16:08 02:56 02:56 RBC 4.06 L Hgb 12.1 L Hct 37.5 L Neutrophils # PT Sodium 136 L Chloride 110 H 110 H BUN 30 H 21 H Creatinine 0.55 L 0.51 L Total Bilirubin 1.4 H Total Protein 5.7 L Urine pH Assessment and Plan Assessment: * Altered mental status, unclear cause. Rule out delirium, CVA unlikely, as CT head showed no acute CVA. * Dementia * Abnormal CT head, rule out normal pressure hydrocephalus * Recurrent falls * Protein calorie malnutrition/weight loss * Hypertension * Hyperlipidemia Plan: * Patient has presented with altered mental status of unclear cause. Patient is completely disoriented. * CT head revealed no acute process. However on my review, there is prominence of ventricles, which may suggest normal pressure hydrocephalus. * 2D echo revealed LVEF 60 to 65%. No obvious regional wall motion abnormalities. Normal left atrial size. No valvular abnormalities * B12 430, folate 19.9, TSH is 2.51. * Check EEG evaluate for encephalopathy, rule out any epileptiform activity * Psychiatry has seen the patient, diagnosed with delirium. * We will obtain collateral history from patient's family. * Thank you for the consult. Addendum: I tried to contact patient's medical POA Juany, but she did not pick and shovel worker the phone. Left a message. I then called Te, patient's financial POA, who provided with additional history. He mentions that patient has developed dementia which is rapidly progressive since June 2024. He has previous history of alcoholism but has not drank for a long time. Patient has been diagnosed with inclusion body IBM and is progress ively got worse. He suffered from a fall in June 2024, and was admitted at [facility] in [place] where he had MRI of the brain as well. Patient's Monique also has been diagnosed with dementia. Patient's dementia has progressively got worse particularly in the last 2 weeks. All of a sudden he w ould have no control of bowels. He has difficulty getting out of bed. Time with Patient: Greater than 30
[2024-09-18 14:37] VITALS: BMI 19.0
--- NOTE | 2024-09-18 16:42 | P.PN ---
Progress Note - Text Progress Note Date: 09/18/24 History of presenting complaint: Patient admitted with increasing confusion and falls. Follows with Chucho Escalera I obtained more information for patient's power of real estate attorney Juany telephone number [phone]. She is the [id number]. Patient was living in a condo with his . Order. Time patient is become progressively losing his memory. Was still able to get around. He started falling. For last 3 months patient was put into a vela around words. Patient the last 2 weeks patient's memory even became much worse. Would not remember even the different rooms. In the last week to 10 days patient also noticed to be shaking. Patient had been losing which weight gradually over some time. Loss of weight loss. He was put on dexamethasone by his visiting physician. Patient is diagnosed in the past with inclusion body myositis. Last few days patient had multiple falls. Patient himself does not really make much sense in terms of giving history. Will speak occasional words. Then he is mixed of his sentences. September 18: Has a sitter. Eating some. He is taking his medications applesauce. Discussed with the nurse. Neurology Dr. Sharif following. 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 On clinical grounds Dr. Sharif is considering a lumbar puncture. Question of NPH is also arisen. Active Medications Aspirin (Aspirin 81 Mg) 81 mg PO DAILY [facility] Last Admin: 09/18/24 10:14 Dose: 81 mg Balsalazide (Balsalazide Disodium 750 Mg Capsule) 2,250 mg PO TID [facility] Last Admin: 09/18/24 10:14 Dose: 2,250 mg Dronabinol (Dronabinol 2.5 Mg Cap) 5 mg PO AC-BID [facility] Last Admin: 09/18/24 06:35 Dose: 5 mg Enoxaparin Sodium (Enoxaparin 40 Mg/0.4 Ml Syringe) 40 mg SQ DAILY [facility] Last Admin: 09/18/24 10:20 Dose: 40 mg Hydralazine HCl (Hydralazine Hcl 20 Mg/Ml 1 Ml Vial) 10 mg IVP Q6HR PRN PRN Reason: Blood Pressure - High Losartan Potassium (Losartan 50 Mg Tab) 100 mg PO DAILY [facility] Last Admin: 09/18/24 10:14 Dose: 100 mg Memantine (Memantine 5 Mg Tab) 5 mg PO HS [facility] Last Admin: 09/17/24 21:22 Dose: 5 mg Naloxone HCl (Naloxone 0.4 Mg/Ml 1 Ml Vial) 0.2 mg IV Q2M PRN PRN Reason: Opioid Reversal Olanzapine (Olanzapine 2.5 Mg Tab) 2.5 mg PO TID PRN PRN Reason: Agitation Last Admin: 09/18/24 14:04 Dose: 2.5 mg Olanzapine (Olanzapine 10 Mg Vial) 5 mg IM BID PRN PRN Reason: Agitation Ondansetron HCl (Ondansetron 4 Mg/2 Ml Vial) 4 mg IVP Q8HR PRN PRN Reason: Nausea And Vomiting On examination: VITAL SIGNS: 98.3, 80, 18, 135/70, 92% room air GENERAL APPEARANCE: Laying in bed, comfortable HEENT: Normal external appearance of nose and ear. Oral cavity normal EYES: Pupils equal. Conjunctiva normal. NECK: JVD not raised. Mass not palpable. RESPIRATORY: Respiratory effort normal. Lungs clear to auscultation. CARDIOVASCULAR: First and second sounds normal. No edema. ABDOMEN: Soft. Liver and spleen not palpable. No tenderness. No mass palpable. PSYCHIATRY: Patient can tell his name. Cannot really hold a conversation. Jumps from 1 word to the other. Not able to speak sentences MUSCULOSKELETAL: Loss of subcutaneous fat and loss of muscle. Prominent bones NEUROLOGICAL: Tremors specially in the upper extremity.. INVESTIGATIONS, reviewed in the clinical context: September 17: White count 7.5 hemoglobin 12.1 platelets 211 sodium 136 potassium 3.5 BUN 21 creatinine 0.51 B12 430 folate 19.9 procalcitonin 0.08 TSH 2.5 UA: Negative Urine drug screen negative EKG tracing normal sinus rhythm. First-degree AV block. Chest x-ray film: Agnes acute CT scan head: Chronic changes. 2D echo: EF 60 to 65%. 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 Patient has the significant muscle weakness. This is a progressive disorder. In view of that. Discontinue Lipitor -Severe protein calorie malnutrition. Patient loss of muscle mass subcutaneous fat. Ensure. One-to-one feeding. -Tremors that could be myoclonus. Given myopathy. Neurology following -Acute on chronic medical debility. As per the [id number] patient has been started falling more frequently. Likely from the myopathy. And weakness. PT OT. -Anorexia probably from underlying chronic disease Stop dexamethasone. Try Marinol 5 mg AC twice daily -Severe cognitive impairment. Patient's B12, folate, normal. TSH normal. Given severe dementia, rule of Namendthad limited.-Discontinued -Essential hypertension Cozaar -Full code -Medical power of real estate attorneyElsa. [phone] Continue current medication treatment plan. Follow- with neurology.
--- NOTE | 2024-09-18 21:35 | EEG ---
ELECTROENCEPHALOGRAM REPORT PREAMBLE: This is a 79-year-old male with history of rapidly progressive dementia. EEG FINDINGS: This is a 21-channel digital EEG recorded with video component, utilizing 10/20 international system with referential and bipolar montages. The recording starts and continues with presence of mixed frequencies of low amplitude 4 hertz theta mixed with 2 to 3 hertz some delta slowing in bihemispheric region. Background does not seem to be reactive to eye opening or closing. Photic driving response was not seen. Different stages of sleep were not seen. No focal or generalized epileptiform activity was seen. No periodic waves were seen. IMPRESSION: This is an abnormal EEG due to background slowing of moderate to severe degree. This is suggestive of generalized cerebral dysfunction as can be seen with toxic metabolic encephalopathy or related to diffuse structural brain abnormality, or neurodegenerative process. No focal, lateralized, or epileptiform activity was seen. MMCADENL / KEARAN: [id number] /
--- NOTE | 2024-09-19 13:13 | P.PN ---
Subjective Progress Note Date: 09/18/24 Patient was seen for a follow-up. Patient continues to be severely confused, encephalopathic delirious. Patient is very malnourished, trying to bring his legs over the side rail. Sometimes goes into the position. I spoke to patient's medical power of [place] attorney Juany along with Carlos, patient's financial power of united [place] attorney. Apparently patient's , Juany and Carlos's are all sisters. Juany mentioned that patient has developed some issues with speech for the last 3 years. He became forgetful, sometimes difficulty with words. He until last November, he was able to have conversations although Juany mentioned that patient has some aphasia, sometimes could not get words out. He fell and hit his head and was admitted to [facility] in June. He stayed there for 2 weeks. He then was in rehab for about 3 weeks. His condition has got worse particularly in the last 2 weeks. 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 However it seems like opposite, as patient has got worse than his . They are concerned about some bladder spasms. Patient has been diagnosed with inclusion body myositis. Objective - Vital Signs Vital signs: Vital Signs Temp 98.3 F 09/18/24 14:00 Pulse 80 09/18/24 14:00 Resp 18 09/18/24 14:00 BP 135/70 09/18/24 14:00 Pulse Ox 92 L 09/18/24 14:00 FiO2 Intake & Output 09/17/24 09/18/24 09/18/24 18:59 06:59 18:59 Output Total 300 Balance -300 Weight 63.503 kg Output: Urine 300 Other: Voiding Method Diaper # Voids 4 2 # Bowel Movements 1 1 - Exam On examination patient is an elderly male, malnutrition, very thin built, has lost a lot of muscles in the forearm, quadriceps as well as distally in the legs. He has classical features of inclusion body myositis with weakness of the flexion of distal interphalangeal joint. He has very significant atrophy of the quadriceps muscles. Patient appears slightly worse. He is more confused. Not able to answer any question. Examination deferred. - Labs CBC & Chem 7: 09/17/24 02:56 09/17/24 02:56 Assessment and Plan Assessment: * Altered mental status, unclear cause. Rule out delirium, CVA unlikely, as CT head showed no acute CVA. * Dementia, progressively getting worse * Abnormal CT head, rule out normal pressure hydrocephalus * Recurrent falls * Protein calorie malnutrition/weight loss * Hypertension * Hyperlipidemia * Inclusion body myositis Plan: * Patient's dementia his rapidly got worse particularly in the last 2 weeks. Exact cause is uncertain. * CT head revealed no acute process. However on my review, there is prominence of ventricles, which may suggest normal pressure hydrocephalus. I discussed with patient's family in detail. Patient may not be a candidate for ventriculoperitoneal shunting because of dementia and baseline gait difficulty because of inclusion body myositis. However, we will try to perform lumbar puncture to see if it helps mentally. Patient has received Lovenox today, therefore cannot have it done. We will hold Lovenox tomorrow and will perform lumbar puncture in the morning. * 2D echo revealed LVEF 60 to 65%. No obvious regional wall motion abnormalities. Normal left atrial size. No valvular abnormalities * B12 430, folate 19.9, TSH is 2.51. * EEG was abnormal due to background slowing of moderate to severe degree. This is suggestive of generalized cerebral dysfunction as can be seen with toxic metabolic encephalopathy or related to diffuse structural brain abnormality or neurodegenerative process. No focal, lateralized or epileptiform activity was seen. * Psychiatry has seen the patient, diagnosed with delirium. They have signed off. Patient on Zyprexa as needed.
[2024-09-19] MEDS: LORazepam 2 MG/ML INJ IV STA (18:09)
[2024-09-19] MEDS: LIDOCAINE 1% INJ 10MG/ML (20 ML MDV) SQ ONE (18:09)
[2024-09-19 18:28] LABS: Glucose,CSF 70 mg/dL (40-70); Total Protein,CSF 60 mg/dL (12-60)
[2024-09-19 19:02] LABS: Appearance,CSF Clear; CSF Tube Number 4; Nucleated Cells, CSF 0 u/L (0-5); Red Blood Cell,CSF 0 u/L (0-10)
--- NOTE | 2024-09-19 19:24 | P.PN ---
Progress Note - Text Progress Note Date: 09/19/24 History of presenting complaint: Patient admitted with increasing confusion and falls. Follows with Chucho Escalera I obtained more information for patient's power of construction tech Juany telephone number [phone]. She is the [id number]. Patient was living in a condo with his . Order. Time patient is become progressively losing his memory. Was still able to get around. He started falling. For last 3 months patient was put into a vela around words. Patient the last 2 weeks patient's memory even became much worse. Would not remember even the different rooms. In the last week to 10 days patient also noticed to be shaking. Patient had been losing which weight gradually over some time. Loss of weight loss. He was put on dexamethasone by his visiting physician. Patient is diagnosed in the past with inclusion body myositis. Last few days patient had multiple falls. Patient himself does not really make much sense in terms of giving history. Will speak occasional words. Then he is mixed of his sentences. September 18: Has a sitter. Eating some. He is taking his medications applesauce. Discussed with the nurse. Neurology Dr. Sharif following. 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 On clinical grounds Dr. Sharif is considering a lumbar puncture. Question of NPH is also arisen. September 19: Set in place. Did eat a few spoons I tried to feed the patient. Decrease intake. Neurology following. Active Medications Aspirin (Aspirin 81 Mg) 81 mg PO DAILY [facility] Last Admin: 09/18/24 19:15 Dose: Not Given Balsalazide (Balsalazide Disodium 750 Mg Capsule) 2,250 mg PO TID [facility] Last Admin: 09/19/24 16:55 Dose: 2,250 mg Dronabinol (Dronabinol 2.5 Mg Cap) 5 mg PO AC-BID [facility] Last Admin: 09/19/24 16:55 Dose: 5 mg Enoxaparin Sodium (Enoxaparin 40 Mg/0.4 Ml Syringe) 40 mg SQ DAILY [facility] Last Admin: 09/18/24 19:14 Dose: Not Given Hydralazine HCl (Hydralazine Hcl 20 Mg/Ml 1 Ml Vial) 10 mg IVP Q6HR PRN PRN Reason: Blood Pressure - High Losartan Potassium (Losartan 50 Mg Tab) 100 mg PO DAILY [facility] Last Admin: 09/19/24 14:04 Dose: Not Given Memantine (Memantine 5 Mg Tab) 5 mg PO HS [facility] Last Admin: 09/18/24 21:11 Dose: 5 mg Naloxone HCl (Naloxone 0.4 Mg/Ml 1 Ml Vial) 0.2 mg IV Q2M PRN PRN Reason: Opioid Reversal Olanzapine (Olanzapine 2.5 Mg Tab) 2.5 mg PO TID PRN PRN Reason: Agitation Last Admin: 09/18/24 14:04 Dose: 2.5 mg Olanzapine (Olanzapine 10 Mg Vial) 5 mg IM BID PRN PRN Reason: Agitation Ondansetron HCl (Ondansetron 4 Mg/2 Ml Vial) 4 mg IVP Q8HR PRN PRN Reason: Nausea And Vomiting On examination: VITAL SIGNS: 97.2, 84, 18, 123 x 60, 99% room air GENERAL APPEARANCE: Laying in bed, comfortable HEENT: Normal external appearance of nose and ear. Oral cavity normal EYES: Pupils equal. Conjunctiva normal. NECK: JVD not raised. Mass not palpable. RESPIRATORY: Respiratory effort normal. Lungs clear to auscultation. CARDIOVASCULAR: First and second sounds normal. No edema. ABDOMEN: Soft. Liver and spleen not palpable. No tenderness. No mass palpable. PSYCHIATRY: Patient can tell his name. Cannot really hold a conversation. Jumps from 1 word to the other. Not able to speak sentences MUSCULOSKELETAL: Loss of subcutaneous fat and loss of muscle. Prominent bones NEUROLOGICAL: Tremors specially in the upper extremity.. INVESTIGATIONS, reviewed in the clinical context: September 17: White count 7.5 hemoglobin 12.1 platelets 211 sodium 136 potassium 3.5 BUN 21 creatinine 0.51 B12 430 folate 19.9 procalcitonin 0.08 TSH 2.5 UA: Negative Urine drug screen negative EKG tracing normal sinus rhythm. First-degree AV block. Chest x-ray film: Agnes acute CT scan head: Chronic changes. 2D echo: EF 60 to 65%. 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 Patient has the significant muscle weakness. This is a progressive disorder. In view of that. Discontinue Lipitor -Severe protein calorie malnutrition. Patient loss of muscle mass subcutaneous fat. Ensure. One-to-one feeding. -Tremors that could be myoclonus. Given myopathy. Neurology following -Acute on chronic medical debility. As per the [id number] patient has been started falling more frequently. Likely from the myopathy. And weakness. PT OT. -Anorexia probably from underlying chronic disease Stop dexamethasone. Try Marinol 5 mg AC twice daily -Severe cognitive impairment. Patient's B12, folate, normal. TSH normal. Given severe dementia, rule of Namenda limited.-Discontinued -Essential hypertension Cozaar -Full code -Medical power of construction techElsa. [phone] Encourage oral intake. Follow-up with neurology.
--- NOTE | 2024-09-20 11:41 | P.PN ---
Subjective Progress Note Date: 09/19/24 09/19/2024: Patient was seen for a follow-up. Patient is laying in the bed, was somnolent. Patient's sister was present, she agreed that patient has rapidly got worse particularly in the last few weeks. She is not much in contact with the patient is compared to patient's [id number] Juany. 09/18/2024: Patient was seen for a follow-up. Patient continues to be severely confused, encephalopathic delirious. Patient is very malnourished, trying to bring his legs over the side rail. Sometimes goes into the position. I spoke to patient's medical power of tax associate attorney Juany along with Carlos, patient's financial power of tax associate attorney. Apparently patient's , Juany and Carlos's are all sisters. Juany mentioned that patient has developed some issues with speech for the last 3 years. He became forgetful, sometimes difficulty with words. He until last November, he was able to have conversations although Juany mentioned that patient has some aphasia, sometimes could not get words out. He fell and hit his head and was admitted to [facility] in June. He stayed there for 2 weeks. He then was in rehab for about 3 weeks. His condition has got worse particularly in the last 2 weeks. 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 However it seems like opposite, as patient has got worse than his . They are concerned about some bladder spasms. Patient has been diagnosed with inclusion body myositis. Objective - Vital Signs Vital signs: Vital Signs Temp 97.2 F L 09/19/24 07:00 Pulse 84 09/19/24 07:00 Resp 18 09/19/24 07:00 BP 123/60 09/19/24 07:00 Pulse Ox 99 09/19/24 07:00 FiO2 Intake & Output 09/18/24 09/19/24 09/19/24 18:59 06:59 18:59 Weight 63.503 kg Other: Voiding Method Diaper # Voids 2 3 # Bowel Movements 1 1 - Exam On examination patient is an elderly male, sleeping at this time. When lumbar puncture was attempted, patient woke up and was very much awake, did not want to have procedure done. He did agree for it to be continued. Patient was being considered for Ativan 2 mg IV, but by the time it arrived, lumbar puncture already has been completed. Patient was speaking more clear sentences. - Labs CBC & Chem 7: 09/17/24 02:56 09/17/24 02:56 Assessment and Plan Assessment: * Altered mental status, unclear cause. Rule out delirium, CVA unlikely, as CT head showed no acute CVA. * Dementia, progressively getting worse * Abnormal CT head, rule out normal pressure hydrocephalus * Recurrent falls * Protein calorie malnutrition/weight loss * Hypertension * Hyperlipidemia * Inclusion body myositis Plan: * Patient's dementia his rapidly got worse particularly in the last 2 weeks. Exact cause is uncertain. * CT head revealed no acute process. However on my review, there is prominence of ventricles, which may suggest normal pressure hydrocephalus. I discussed with patient's family in detail. Patient may not be a candidate for ventriculoperitoneal shunting because of dementia and baseline gait difficulty because of inclusion body myositis. However, we will try to perform lumbar puncture to see if it helps mentally. * 2D echo revealed LVEF 60 to 65%. No obvious regional wall motion abnormalities. Normal left atrial size. No valvular abnormalities * B12 430, folate 19.9, TSH is 2.51. * EEG was abnormal due to background slowing of moderate to severe degree. This is suggestive of generalized cerebral dysfunction as can be seen with toxic metabolic encephalopathy or related to diffuse structural brain abnormality or neurodegenerative process. No focal, lateralized or epileptiform activity was seen. * Psychiatry has seen the patient, diagnosed with delirium. They have signed off. Patient on Zyprexa as needed. * Patient to undergo lumbar puncture. Consent obtained from patient's [id number] Juany, who is medical power of tax associate attorney. Risk and benefits were informed.
--- NOTE | 2024-09-20 11:48 | P.PCN ---
Date of Procedure: 09/19/24 Preoperative Diagnosis: Altered mental status, rule out meningitis encephalitis, NPH Postoperative Diagnosis: Altered mental status, rule out encephalitis meningitis, NPH Procedure(s) Performed: Lumbar puncture Anesthesia: local Surgeon: [place] Sharif Estimated Blood Loss (ml): 0 Condition: stable Disposition: floor Indications for Procedure: Altered mental status, rule out encephalitis meningitis, NPH, rapidly progressive dementia Operative Findings: Informed consent was obtained from patient's [id number], who is medical power of assistant district attorney. Very detailed risks and benefits of the procedure, and the indication of procedure was explained to the patient in detail in the presence of nurse. She was informed of the risk of infection, bleeding, numbness, back pain, and the features of post spinal headache and the treatment. Patient was placed in the left lateral recumbent position. The procedure was performed under strict aseptic conditions. L4 lumbar space was identified and marked. Low back region was sterilized with ChloraPrep and then with Betadine, and anesthetized with 1% lidocaine. A spinal needle 20-gauge, 3.5 inch inserted at L4 lumbar space. I was able to enter subarachnoid space in the second pass. The spinal fluid was very clear, colorless, atraumatic. Opening pressure was not checked. About 16 cc of spinal fluid was collected in 4 tubes. Stylette was reintroduced, spinal needle withdrawn. Band-Aid applied. Patient was recommended to lay flat for half an hour. Patient tolerated the procedure very well. Patient was not cooperating during the procedure. We were planning to give Ativan 2 mg IV, but by that time the procedure was already completed.
--- NOTE | 2024-09-20 15:09 | P.PN ---
Subjective Progress Note Date: 09/20/24 09/20/2024: Patient was seen for a follow-up. Patient is laying in the bed. Patient continues to be severely confused, with no improvement with lumbar puncture to my evaluation. Please refer to examination below. A sitter was also present by the bedside. 09/19/2024: Patient was seen for a follow-up. Patient is laying in the bed, was somnolent. Patient's sister was present, she agreed that patient has rapidly got worse particularly in the last few weeks. She is not much in contact with the patient is compared to patient's [id number] Juany. 09/18/2024: Patient was seen for a follow-up. Patient continues to be severely confused, encephalopathic delirious. Patient is very malnourished, trying to bring his legs over the side rail. Sometimes goes into the position. I spoke to patient's medical power of estate attorney Juany along with Carlos, patient's financial power of estate attorney. Apparently patient's , Juany and Carlos's are all sisters. Juany mentioned that patient has developed some issues with speech for the last 3 years. He became forgetful, sometimes difficulty with words. He until last November, he was able to have conversations although Juany mentioned that patient has some aphasia, sometimes could not get words out. He fell and hit his head and was admitted to [facility] in June. He stayed there for 2 weeks. He then was in rehab for about 3 weeks. His condition has got worse particularly in the last 2 weeks. 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 Vlad amin it seems like opposite, as patient has got worse than his . They are concerned about some bladder spasms. Patient has been diagnosed with inclusion body myositis. Objective - Vital Signs Vital signs: Vital Signs Temp 98.1 F 09/20/24 07:16 Pulse 75 09/20/24 07:16 Resp 17 09/20/24 07:16 BP 118/75 09/20/24 07:16 Pulse Ox 99 09/20/24 07:16 FiO2 Intake & Output 09/19/24 09/20/24 09/20/24 18:59 06:59 18:59 Other: Voiding Method Diaper # Voids 1 2 # Bowel Movements 1 1 - Exam On examination patient is an elderly male, in no acute distress. He is alert and awake. Patient continues to be very confused. Regarding year, patient states "a". Regarding CT patient states "51". Patient able to name pen as "pencil", but for eyeglasses patient states "eyes, you can get it". Patient then calls out for Monique his . - Labs CBC & Chem 7: 09/17/24 02:56 09/17/24 02:56 Labs: Microbiology - Last 24 Hours (Table) 09/19/24 18:00 CSF Gram Stain - Preliminary Cerebral Spinal Fluid Assessment and Plan Assessment: * Altered mental status, unclear cause. Rule out delirium, CVA unlikely, as CT head showed no acute CVA. * Dementia, progressively getting worse * Abnormal CT head, rule out normal pressure hydrocephalus * Recurrent falls * Protein calorie malnutrition/weight loss * Hypertension * Hyperlipidemia * Inclusion body myositis Plan: * Patient's dementia his rapidly got worse particularly in the last 2 weeks. Exact cause is uncertain. * CT head revealed no acute process. However on my review, there is prominence of ventricles, which may suggest normal pressure hydrocephalus. I discussed with patient's family in detail. Patient may not be a candidate for ventriculoperitoneal shunting because of advanced dementia and baseline gait difficulty because of inclusion body myositis. * 2D echo revealed LVEF 60 to 65%. No obvious regional wall motion abnormalities. Normal left atrial size. No valvular abnormalities * B12 430, folate 19.9, TSH is 2.51. * EEG was abnormal due to background slowing of moderate to severe degree. This is suggestive of generalized cerebral dysfunction as can be seen with toxic metabolic encephalopathy or related to diffuse structural brain abnormality or neurodegenerative process. No focal, lateralized or epileptiform activity was seen. * Psychiatry has seen the patient, diagnosed with delirium. They have signed off. Patient on Zyprexa as needed. * Cerebrospinal fluid revealed WBC 0, RBC 0, glucose 70, protein 60. Comprehensive viral panel and other CSF tests pending. * Patient underwent large-volume tap, and about 15 to 16 cc of spinal fluid was drained. At present does not appear there is any clinical improvement in his mentation. I spoke to patient's medical power of estate attorney, Juany, who saw the patient last night and also agreed that there was no improvement in h is mentation. Overall, large-volume spinal tap did not help the patient. Does not appear to be a candidate for ventriculoperitoneal shunting. * I discussed with patient's [id number] about possibility of MRI of the brain, just to complete the workup. She states that as it probably will not change the management, and for that procedure, he will need sedation, therefore she wants to hold off on it. She will discuss with the family members if they want to pursue any further at this point. * Dr. Ted Shepard to resume neurology service from the morning.
--- NOTE | 2024-09-20 16:39 | P.PN ---
Progress Note - Text Progress Note Date: 09/20/24 History of presenting complaint: Patient admitted with increasing confusion and falls. Follows with Chucho Escalera I obtained more information for patient's power of attorney general Juany telephone number [phone]. She is the [id number]. Patient was living in a condo with his . Order. Time patient is become progressively losing his memory. Was still able to get around. He started falling. For last 3 months patient was put into a vela around words. Patient the last 2 weeks patient's memory even became much worse. Would not remember even the different rooms. In the last week to 10 days patient also noticed to be shaking. Patient had been losing which weight gradually over some time. Loss of weight loss. He was put on dexamethasone by his visiting physician. Patient is diagnosed in the past with inclusion body myositis. Last few days patient had multiple falls. Patient himself does not really make much sense in terms of giving history. Will speak occasional words. Then he is mixed of his sentences. September 18: Has a sitter. Eating some. He is taking his medications applesauce. Discussed with the nurse. Neurology Dr. Sharif following. 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 On clinical grounds Dr. Sharif is considering a lumbar puncture. Question of NPH is also arisen. September 19: Set in place. Did eat a few spoons I tried to feed the patient. Decrease intake. Neurology following. September 20: Patient eating only intermittently. Has a sitter. Seems to be resting most of the time. Dr. Sharif neurology spoke with patient's family. Do not want MRI as Agnes change much of the management. Active Medications Aspirin (Aspirin 81 Mg) 81 mg PO DAILY [facility] Last Admin: 09/20/24 09:50 Dose: 81 mg Balsalazide (Balsalazide Disodium 750 Mg Capsule) 2,250 mg PO TID [facility] Last Admin: 09/20/24 09:50 Dose: 2,250 mg Dronabinol (Dronabinol 2.5 Mg Cap) 5 mg PO AC-BID [facility] Last Admin: 09/20/24 06:58 Dose: 5 mg Enoxaparin Sodium (Enoxaparin 40 Mg/0.4 Ml Syringe) 40 mg SQ DAILY [facility] Last Admin: 09/20/24 09:51 Dose: 40 mg Hydralazine HCl (Hydralazine Hcl 20 Mg/Ml 1 Ml Vial) 10 mg IVP Q6HR PRN PRN Reason: Blood Pressure - High Losartan Potassium (Losartan 50 Mg Tab) 100 mg PO DAILY [facility] Last Admin: 09/20/24 09:50 Dose: 100 mg Memantine (Memantine 5 Mg Tab) 5 mg PO HS [facility] Last Admin: 09/19/24 21:19 Dose: 5 mg Naloxone HCl (Naloxone 0.4 Mg/Ml 1 Ml Vial) 0.2 mg IV Q2M PRN PRN Reason: Opioid Reversal Olanzapine (Olanzapine 2.5 Mg Tab) 2.5 mg PO TID PRN PRN Reason: Agitation Last Admin: 09/18/24 14:04 Dose: 2.5 mg Olanzapine (Olanzapine 10 Mg Vial) 5 mg IM BID PRN PRN Reason: Agitation Ondansetron HCl (Ondansetron 4 Mg/2 Ml Vial) 4 mg IVP Q8HR PRN PRN Reason: Nausea And Vomiting On examination: VITAL SIGNS: 97.7, 74, 16, 112 x 68, 98% room air GENERAL APPEARANCE: Laying in bed, comfortable HEENT: Normal external appearance of nose and ear. Oral cavity normal EYES: Pupils equal. Conjunctiva normal. NECK: JVD not raised. Mass not palpable. RESPIRATORY: Respiratory effort normal. Lungs clear to auscultation. CARDIOVASCULAR: First and second sounds normal. No edema. ABDOMEN: Soft. Liver and spleen not palpable. No tenderness. No mass palpable. PSYCHIATRY: Patient can tell his name. Cannot really hold a conversation. Jumps from 1 word to the other. Not able to speak sentences MUSCULOSKELETAL: Loss of subcutaneous fat and loss of muscle. Prominent bones NEUROLOGICAL: Tremors specially in the upper extremity.. INVESTIGATIONS, reviewed in the clinical context: September 17: White count 7.5 hemoglobin 12.1 platelets 211 sodium 136 potassium 3.5 BUN 21 creatinine 0.51 B12 430 folate 19.9 procalcitonin 0.08 TSH 2.5 UA: Negative Urine drug screen negative EKG tracing normal sinus rhythm. First-degree AV block. Chest x-ray film: Agnes acute CT scan head: Chronic changes. 2D echo: EF 60 to 65%. 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 Patient has the significant muscle weakness. This is a progressive disorder. In view of that. Discontinue Lipitor -Severe protein calorie malnutrition. Patient loss of muscle mass subcutaneous fat. Ensure. One-to-one feeding. -Tremors that could be myoclonus. Given myopathy. Neurology following -Acute on chronic medical debility. As per the rijktz-la-hat patient has been started falling more frequently. Likely from the myopathy. And weakness. PT OT. -Anorexia probably from underlying chronic disease Stop dexamethasone. Started on Marinol 5 mg AC twice daily -Severe cognitive impairment. Patient's B12, folate, normal. TSH normal. -Essential hypertension Cozaar -Full code -Medical power of attorney generalElsa. [phone] Wiggins spoke with patient's family. 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 Prognosis guarded. Options very limited.
[2024-09-21 04:25] LABS: ALT 15 U/L (4-49); AST 24 U/L (17-59); African American GFR (CKD) >90 (>60 ml/min/1.73 sqM); Albumin 3.3 g/dL (3.5-5.0); Albumin/Globulin Ratio 1.4; Alkaline Phosphatase 74 U/L (38-126); Anion Gap 1 mmol/L; Blood Urea Nitrogen 36 mg/dL (9-20); Calcium 8.4 mg/dL (8.4-10.2); Carbon Dioxide 27 mmol/L (22-30); Chloride 107 mmol/L (98-107); Globulin 2.4 g/dL; Glucose 111 mg/dL (74-99); Non-African American GFR(CKD) >90 (>60 ml/min/1.73 sqM); Potassium 3.6 mmol/L (3.5-5.1); Sodium 135 mmol/L (137-145); Total Protein 5.7 g/dL (6.3-8.2)
--- NOTE | 2024-09-21 16:38 | P.PN ---
Subjective Progress Note Date: 09/21/24 I am seeing the patient for the first time during this admission. Please refer to Dr. Sharif's notes for further details. Seems to the patient has underlying history of progressive dementia which is getting worse and he has altered mental status and per Dr. Sharif's note unknown cause. He spoke with family members regarding MRI and they did not want to pursue with MRI of the brain. Patient is unable to provide history for me and he is more agitated and restless. Objective - Vital Signs Vital signs: Vital Signs Temp 97.5 F L 09/21/24 13:10 Pulse 70 09/21/24 13:10 Resp 17 09/21/24 13:10 BP 120/72 09/21/24 13:10 Pulse Ox 96 09/21/24 13:10 FiO2 Intake & Output 09/20/24 09/21/24 09/21/24 18:59 06:59 18:59 Other: Voiding Method Diaper Diaper # Voids 1 2 # Bowel Movements 1 4 - Exam General: Lying in bed and does not appear in acute distress but at times appears agitated and restless. Neuro: Limited. Patient is awake. Is oriented to self but talks tangential. He follows some few simple commands. Upon asking him the year on the place he said I do not care. The pupils are round equal reactive to light. From limitation no facial weakn ess. Motor the strength is hard to assess but he is able to lift up upper and lower above gravity. He did have some tremor at times with movement at times with rest. - Labs CBC & Chem 7: 09/17/24 02:56 09/21/24 03:44 Labs: Abnormal Lab Results - Last 24 Hours (Table) 09/21/24 Range/Units 03:44 Sodium 135 L (137-145) mmol/L BUN 36 H (9-20) mg/dL Creatinine 0.55 L (0.66-1.25) mg/dL Glucose 111 H (74-99) mg/dL Total Protein 5.7 L (6.3-8.2) g/dL Albumin 3.3 L (3.5-5.0) g/dL Microbiology - Last 24 Hours (Table) 09/19/24 18:00 Acid Fast Bacilli Smear - Preliminary Cerebral Spinal Fluid 09/19/24 18:00 CSF Gram Stain - Preliminary Cerebral Spinal Fluid CSF Culture - Preliminary Assessment and Plan Assessment: * Altered mental status, unclear cause. Rule out delirium, CVA unlikely, as CT head showed no acute CVA. * Dementia, progressively getting worse * Abnormal CT head, rule out normal pressure hydrocephalus * Recurrent falls * Protein calorie malnutrition/weight loss * Inclusion body myositis * Hypertension * Hyperlipidemia Plan: * CT head revealed no acute process. However on my review, there is prominence of ventricles, which may suggest normal pressure hydrocephalus. I discussed with patient's family in detail. Patient may not be a candidate for ventriculoperitoneal shunting because of advanced dementia and baseline gait difficulty because of inclusion body myositis. * 2D echo revealed LVEF 60 to 65%. No obvious regional wall motion abnormalities. Normal left atrial size. No valvular abnormalities * B12 430, folate 19.9, TSH is 2.51. * EEG was abnormal due to background slowing of moderate to severe degree. This is suggestive of generalized cerebral dysfunction as can be seen with toxic metabolic encephalopathy or related to diffuse structural brain abnormality or neurodegenerative process. No focal, lateralized or epileptiform activity was seen. * Psychiatry has seen the patient, diagnosed with delirium. They have signed off. Patient on Zyprexa as needed. * Cerebrospinal fluid revealed WBC 0, RBC 0, glucose 70, protein 60. Comprehensive viral panel and other CSF tests pending. * Patient underwent large-volume tap, and it seems about 15 to 16 cc of spinal fluid was drained. At present does not appear there is any clinical improvement in his mentation. Dr. Sharif spoke to patient's medical power of sports attorney, Juany, who saw the patient last night and also agreed that there was no improvement in his mentation. Overall, large-volume spinal tap did not help the patient. Does not appear to be a candidate for ventriculoperitoneal shunting. * Dr. Sharif discussed with patient's [id number] about possibility of MRI of the brain, just to complete the workup. She states that as it probably will not change the management, and for that procedure, he will need sedation, therefore she wants to hold off on it. She will discuss with the family members if they want to pursue any further at this point. * Prognosis appears poor. Patient has progressive worsening of dementia. * I will hold off on pursuing any additional workup and the primary will speak with his family members regarding next steps of management. Discussed with the patient primary attending as well as his nurse. Time with Patient: Less than 30
[2024-09-21] MEDS: OLANZapine 10 MG VIAL IM PRN (17:57)
--- NOTE | 2024-09-21 21:12 | P.PN ---
Progress Note - Text Progress Note Date: 09/21/24 History of presenting complaint: Patient admitted with increasing confusion and falls. Follows with Chucho Escalera I obtained more information for patient's power of galley cook Juany telephone number [phone]. She is the [id number]. Patient was living in a condo with his . Order. Time patient is become progressively losing his memory. Was still able to get around. He started falling. For last 3 months patient was put into a vela around words. Patient the last 2 weeks patient's memory even became much worse. Would not remember even the different rooms. In the last week to 10 days patient also noticed to be shaking. Patient had been losing which weight gradually over some time. Loss of weight loss. He was put on dexamethasone by his visiting physician. Patient is diagnosed in the past with inclusion body myositis. Last few days patient had multiple falls. Patient himself does not really make much sense in terms of giving history. Will speak occasional words. Then he is mixed of his sentences. September 18: Has a sitter. Eating some. He is taking his medications applesauce. Discussed with the nurse. Neurology Dr. Sharif following. 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 On clinical grounds Dr. Sharif is considering a lumbar puncture. Question of NPH is also arisen. September 19: Set in place. Did eat a few spoons I tried to feed the patient. Decrease intake. Neurology following. September 20: Patient eating only intermittently. Has a sitter. Seems to be resting most of the time. Dr. Sharif neurology spoke with patient's family. Do not want MRI as Agnes change much of the management. September 21: Saw the patient this morning. Hardly slept last night. Did drink some milk and little bit of breakfast earlier today. Sitter at the bedside. Dr. SHEPARD called me after reviewing the patient. Not further testing or any help any further. Agrees with moving on with hospice. I called patient's [id number] Ayala. Explained. She understands and agreeable to proceed with hospice. Will consult social welfare clerk looking to outpatient hospice placement. Will change Zyprexa to 5 mg nightly Active Medications Aspirin (Aspirin 81 Mg) 81 mg PO DAILY [facility] Last Admin: 09/21/24 08:48 Dose: 81 mg Balsalazide (Balsalazide Disodium 750 Mg Capsule) 2,250 mg PO TID [facility] Last Admin: 09/21/24 17:16 Dose: Not Given Dronabinol (Dronabinol 2.5 Mg Cap) 5 mg PO AC-BID [facility] Last Admin: 09/21/24 17:16 Dose: Not Given Enoxaparin Sodium (Enoxaparin 40 Mg/0.4 Ml Syringe) 40 mg SQ DAILY [facility] Last Admin: 09/21/24 08:48 Dose: 40 mg Hydralazine HCl (Hydralazine Hcl 20 Mg/Ml 1 Ml Vial) 10 mg IVP Q6HR PRN PRN Reason: Blood Pressure - High Losartan Potassium (Losartan 50 Mg Tab) 100 mg PO DAILY [facility] Last Admin: 09/21/24 08:48 Dose: 100 mg Naloxone HCl (Naloxone 0.4 Mg/Ml 1 Ml Vial) 0.2 mg IV Q2M PRN PRN Reason: Opioid Reversal Olanzapine (Olanzapine 2.5 Mg Tab) 2.5 mg PO TID PRN PRN Reason: Agitation Last Admin: 09/18/24 14:04 Dose: 2.5 mg Olanzapine (Olanzapine 10 Mg Vial) 5 mg IM BID PRN PRN Reason: Agitation Last Admin: 09/21/24 17:57 Dose: 5 mg Olanzapine (Olanzapine 5 Mg Tab) 5 mg PO HS [facility] Ondansetron HCl (Ondansetron 4 Mg/2 Ml Vial) 4 mg IVP Q8HR PRN PRN Reason: Nausea And Vomiting On examination: VITAL SIGNS: 97.5, 70, 17, 120 x 32, 96% room air GENERAL APPEARANCE: Laying in bed, sleepy HEENT: Normal external appearance of nose and ear. Oral cavity normal EYES: Pupils equal. Conjunctiva normal. NECK: JVD not raised. Mass not palpable. RESPIRATORY: Respiratory effort normal. Lungs clear to auscultation. CARDIOVASCULAR: First and second sounds normal. No edema. ABDOMEN: Soft. Liver and spleen not palpable. No tenderness. No mass palpable. PSYCHIATRY: Rather sleepy MUSCULOSKELETAL: Loss of subcutaneous fat and loss of muscle. Prominent bones NEUROLOGICAL: Tremors specially in the upper extremity.. INVESTIGATIONS, reviewed in the clinical context: September 21: Sodium 135 potassium 3.6 BUN 36 creatinine 0.55 September 17: White count 7.5 hemoglobin 12.1 platelets 211 sodium 136 potassium 3.5 BUN 21 creatinine 0.51 B12 430 folate 19.9 procalcitonin 0.08 TSH 2.5 UA: Negative Urine drug screen negative EKG tracing normal sinus rhythm. First-degree AV block. Chest x-ray film: Agnes acute CT scan head: Chronic changes. 2D echo: EF 60 to 65%. 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 Patient has the significant muscle weakness. This is a progressive disorder. In view of that. Discontinue Lipitor -Severe protein calorie malnutrition. Patient loss of muscle mass subcutaneous fat. Ensure. One-to-one feeding. -Tremors that could be myoclonus. Given myopathy. Neurology following -Acute on chronic medical debility. As per the [id number] patient has been started falling more frequently. Likely from the myopathy. And weakness. PT OT. -Anorexia probably from underlying chronic disease Stop dexamethasone. Started on Marinol 5 mg AC twice daily -Severe cognitive impairment. Patient's B12, folate, normal. TSH normal. -Essential hypertension Cozaar -No code, looking for hospice outpatient placement -Medical power of galley cookElsa. [phone] Advance care planning [September 21, 2024] Discussed with patient aebyra-vi-kaj Ayala. Overall condition discussed. Neurological findings discussed. And had discussion with neurology had already occurred with ultrasound. Dr. Shepard discussion today also was told. She wished to proceed with hospice. powder worker tnt will be consulted to look for outpatient hospice. Questions answered Time spent about 25 minutes
[2024-09-21] MEDS: OLANZapine 5 MG TAB PO SCH (21:58)
--- NOTE | 2024-09-22 17:50 | P.PN ---
Progress Note - Text Progress Note Date: 09/22/24 History of presenting complaint: Patient admitted with increasing confusion and falls. Follows with Chucho Escalera I obtained more information for patient's power of transactional attorney Juany telephone number [phone]. She is the [id number]. Patient was living in a condo with his . Order. Time patient is become progressively losing his memory. Was still able to get around. He started falling. For last 3 months patient was put into a vela around words. Patient the last 2 weeks patient's memory even became much worse. Would not remember even the different rooms. In the last week to 10 days patient also noticed to be shaking. Patient had been losing which weight gradually over some time. Loss of weight loss. He was put on dexamethasone by his visiting physician. Patient is diagnosed in the past with inclusion body myositis. Last few days patient had multiple falls. Patient himself does not really make much sense in terms of giving history. Will speak occasional words. Then he is mixed of his sentences. September 18: Has a sitter. Eating some. He is taking his medications applesauce. Discussed with the nurse. Neurology Dr. Sharif following. 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 On clinical grounds Dr. hSarif is considering a lumbar puncture. Question of NPH is also arisen. September 19: Set in place. Did eat a few spoons I tried to feed the patient. Decrease intake. Neurology following. September 20: Patient eating only intermittently. Has a sitter. Seems to be resting most of the time. Dr. Sharif neurology spoke with patient's family. Do not want MRI as Agnes change much of the management. September 21: Saw the patient this morning. Hardly slept last night. Did drink some milk and little bit of breakfast earlier today. Sitter at the bedside. Dr. SHEPARD called me after reviewing the patient. Not further testing or any help any further. Agrees with moving on with hospice. I called patient's uutdvq-yh-zue Ayala. Explained. She understands and agreeable to proceed with hospice. Will consult social worker clinical looking to outpatient hospice placement. Will change Zyprexa to 5 mg nightly September 22: Patient was seen this afternoon. Sitter at the bedside. Patient slept most of last night and this morning. Will cut back the p.m. dose of Zyprexa to 2.5 mg. Patient eats intermittently. [facility] [place]. Discharge will happen tomorrow. Active Medications Aspirin (Aspirin 81 Mg) 81 mg PO DAILY [facility] Last Admin: 09/22/24 08:43 Dose: Not Given Balsalazide (Balsalazide Disodium 750 Mg Capsule) 2,250 mg PO TID [facility] Last Admin: 09/22/24 16:45 Dose: Not Given Dronabinol (Dronabinol 2.5 Mg Cap) 5 mg PO AC-BID [facility] Last Admin: 09/22/24 16:45 Dose: Not Given Enoxaparin Sodium (Enoxaparin 40 Mg/0.4 Ml Syringe) 40 mg SQ DAILY [facility] Last Admin: 09/22/24 17:09 Dose: 40 mg Hydralazine HCl (Hydralazine Hcl 20 Mg/Ml 1 Ml Vial) 10 mg IVP Q6HR PRN PRN Reason: Blood Pressure - High Losartan Potassium (Losartan 50 Mg Tab) 100 mg PO DAILY [facility] Last Admin: 09/22/24 08:43 Dose: Not Given Naloxone HCl (Naloxone 0.4 Mg/Ml 1 Ml Vial) 0.2 mg IV Q2M PRN PRN Reason: Opioid Reversal Olanzapine (Olanzapine 2.5 Mg Tab) 2.5 mg PO TID PRN PRN Reason: Agitation Last Admin: 09/18/24 14:04 Dose: 2.5 mg Olanzapine (Olanzapine 10 Mg Vial) 5 mg IM BID PRN PRN Reason: Agitation Last Admin: 09/21/24 17:57 Dose: 5 mg Olanzapine (Olanzapine 2.5 Mg Tab) 2.5 mg PO HS [facility] Ondansetron HCl (Ondansetron 4 Mg/2 Ml Vial) 4 mg IVP Q8HR PRN PRN Reason: Nausea And Vomiting On examination: VITAL SIGNS: 96.9, 89, 18, 133 x 68, 98% room air GENERAL APPEARANCE: Sleepy HEENT: Normal external appearance of nose and ear. Oral cavity normal EYES: Pupils equal. Conjunctiva normal. NECK: JVD not raised. Mass not palpable. RESPIRATORY: Respiratory effort normal. Lungs clear to auscultation. CARDIOVASCULAR: First and second sounds normal. No edema. ABDOMEN: Soft. Liver and spleen not palpable. No tenderness. No mass palpable. PSYCHIATRY: Sleepy MUSCULOSKELETAL: Loss of subcutaneous fat and loss of muscle. Prominent bones NEUROLOGICAL: Tremors specially in the upper extremity.. INVESTIGATIONS, reviewed in the clinical context: September 21: Sodium 135 potassium 3.6 BUN 36 creatinine 0.55 September 17: White count 7.5 hemoglobin 12.1 platelets 211 sodium 136 potassium 3.5 BUN 21 creatinine 0.51 B12 430 folate 19.9 procalcitonin 0.08 TSH 2.5 UA: Negative Urine drug screen negative EKG tracing normal sinus rhythm. First-degree AV block. Chest x-ray film: Agnes acute CT scan head: Chronic changes. 2D echo: EF 60 to 65%. 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 Patient has the significant muscle weakness. This is a progressive disorder. In view of that. Discontinue Lipitor -Severe protein calorie malnutrition. Patient loss of muscle mass subcutaneous fat. Ensure. One-to-one feeding. -Tremors that could be myoclonus. Given myopathy. Neurology following -Acute on chronic medical debility. As per the [id number] patient has been started falling more frequently. Likely from the myopathy. And weakness. PT OT. -Anorexia probably from underlying chronic disease Stop dexamethasone. Started on Marinol 5 mg AC twice daily -Severe cognitive impairment. Patient's B12, folate, normal. TSH normal. -Essential hypertension Cozaar -No code, looking for hospice outpatient placement -Medical power of transactional attorneyElsa. [phone] Advance care planning [September 21, 2024] Discussed with patient [id number] Ayala. Overall condition discussed. Neurological findings discussed. And had discussion with neurology had already occurred with ultrasound. Dr. Shepard discussion today also was told. She wished to proceed with hospice. process worker will be consulted to look for outpatient hospice. Questions answered Time spent about 25 minutes Patient accepted at hospice house in [place]. Plan for discharge tomorrow.
[2024-09-23] MEDS: OLANZapine 2.5 MG TAB PO SCH (00:07)
[2024-09-23 07:12] VITALS: BP 123/68; PULSE 89; RESP 16; TEMP 98.9
--- NOTE | 2024-09-23 10:06 | P.DS ---
Providers Date of admission: 09/17/24 15:09 Expected date of discharge: 09/23/24 Attending physician: Keith Amato Consults: 09/16/24 20:19 Consult Physician Routine Consulting Provider: Taye Melendez Consult Reason/Comments: ams Do you want consulting provider notified?: Already Contacted Consult Physician Routine Consulting Provider: [place] Sharif Consult Reason/Comments: ams Do you want consulting provider notified?: Yes Primary care physician: Stated None Hospital Course: History of presenting complaint: Patient admitted with increasing confusion and falls. Follows with Chucho Escalera I obtained more information for patient's power of real estate associate attorney Juany telephone number [phone]. She is the [id number]. Patient was living in a condo with his . Order. Time patient is become progressively losing his memory. Was still able to get around. He started falling. For last 3 months patient was put into a vela around words. Patient the last 2 weeks patient's memory even became much worse. Would not remember even the different rooms. In the last week to 10 days patient also noticed to be shaking. Patient had been losing which weight gradually over some time. Loss of weight loss. He was put on dexamethasone by his visiting physician. Patient is diagnosed in the past with inclusion body myositis. Last few days patient had multiple falls. Patient himself does not really make much sense in terms of giving history. Will speak occasional words. Then he is mixed of his sentences. September 18: Has a sitter. Eating some. He is taking his medications applesauce. Discussed with the nurse. Neurology Dr. Sharif following. 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 On clinical grounds Dr. Sharif is considering a lumbar puncture. Question of NPH is also arisen. September 19: Set in place. Did eat a few spoons I tried to feed the patient. Decrease intake. Neurology following. September 20: Patient eating only intermittently. Has a sitter. Seems to be resting most of the time. Dr. Sharif neurology spoke with patient's family. Do not want MRI as Agnes change much of the management. September 21: Saw the patient this morning. Hardly slept last night. Did drink some milk and little bit of breakfast earlier today. Sitter at the bedside. Dr. SHEPARD called me after reviewing the patient. Not further testing or any help any further. Agrees with moving on with hospice. I called patient's [id number] Ayala. Explained. She understands and agreeable to proceed with hospice. Will consult school social worker looking to outpatient hospice placement. Will change Zyprexa to 5 mg nightly September 22: Patient was seen this afternoon. Sitter at the bedside. Patient slept most of last night and this morning. Will cut back the p.m. dose of Zyprexa to 2.5 mg. Patient eats intermittently. Patient been accepted by hospice house by [facility] in [place]. Discharge will happen tomorrow. September 23: Patient did eat sporadically. Sometimes will not even take his medications. Otherwise remains calm. He will be discharged to hospice house and there is Jian today. On examination: VITAL SIGNS: 98.9, 106, 16, 105 x 62, 90% on 2 L GENERAL APPEARANCE: Sleepy HEENT: Normal external appearance of nose and ear. Oral cavity normal EYES: Pupils equal. Conjunctiva normal. NECK: JVD not raised. Mass not palpable. RESPIRATORY: Respiratory effort normal. Lungs clear to auscultation. CARDIOVASCULAR: First and second sounds normal. No edema. ABDOMEN: Soft. Liver and spleen not palpable. No tenderness. No mass palpable. PSYCHIATRY: Sleepy MUSCULOSKELETAL: Loss of subcutaneous fat and loss of muscle. Prominent bones NEUROLOGICAL: Tremors specially in the upper extremity.. INVESTIGATIONS, reviewed in the clinical context: September 21: Sodium 135 potassium 3.6 BUN 36 creatinine 0.55 September 17: White count 7.5 hemoglobin 12.1 platelets 211 sodium 136 potassium 3.5 BUN 21 creatinine 0.51 B12 430 folate 19.9 procalcitonin 0.08 TSH 2.5 UA: Negative Urine drug screen negative EKG tracing normal sinus rhythm. First-degree AV block. Chest x-ray film: Agnes acute CT scan head: Chronic changes. 2D echo: EF 60 to 65%. 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 Patient has the significant muscle weakness. This is a progressive disorder. In view of that. Discontinue Lipitor -Severe protein calorie malnutrition. Patient loss of muscle mass subcutaneous fat. Ensure. One-to-one feeding. -Tremors that could be myoclonus. Given myopathy. Neurology following -Acute on chronic medical debility. As per the [id number] patient has been started falling more frequently. Likely from the myopathy. And weakness. PT OT. -Anorexia probably from underlying chronic disease Was tried on Marinol 5 mg AC twice daily -Severe cognitive impairment. Patient's B12, folate, normal. TSH normal. -Essential hypertension Cozaar -No code, looking for hospice outpatient placement -Medical power of real estate associate attorneyElsa. [phone] Advance care planning [September 21, 2024] Discussed with patient [id number] Ayala. Overall condition discussed. Neurological findings discussed. And had discussion with neurology had already occurred with ultrasound. Dr. Shepard discussion today also was told. She wished to proceed with hospice. machine clothing worker will be consulted to look for outpatient hospice. Questions answered Time spent about 25 minutes Disposition: [facility] Plan - Discharge Summary Discharge Rx Participant: Yes New Discharge Prescriptions: New OLANZapine [ZyPREXA] 2.5 mg PO HS tab OLANZapine [ZyPREXA] 2.5 mg PO TID PRN tab PRN Reason: Agitation Continue Losartan Potassium 100 mg PO DAILY Aspirin EC [Ecotrin Low Dose] 81 mg PO DAILY Mesalamine 1.2 gm PO DAILY Vitamin B Complex 1 cap PO DAILY Discontinued Atorvastatin [Lipitor] 40 mg PO HS Memantine [Namenda] 5 mg PO HS dexAMETHasone [Decadron] 4 mg PO DAILY Discharge Medication List Aspirin EC [Ecotrin Low Dose] 81 mg PO DAILY 09/17/24 [History] Losartan Potassium 100 mg PO DAILY 09/17/24 [History] Mesalamine 1.2 gm PO DAILY 09/17/24 [History] Vitamin B Complex 1 cap PO DAILY 09/17/24 [History] OLANZapine [ZyPREXA] 2.5 mg PO HS tab 09/23/24 [Rx] OLANZapine [ZyPREXA] 2.5 mg PO TID PRN tab 09/23/24 [Rx] Follow up Appointment(s)/Referral(s): [facility] [REFERRING] - 1-2 Days Patient Instructions/Handouts: Altered Mental Status (ED)
== END 2024-09-23 11:15 | disposition hospice, inpatient (51) | DRG 545 ==
LOC: EC 15:43 → 4SSUR 20:20 → OBSVTOIN 09-17 15:09
PROVIDERS: ADMIT Hospitalist; ATTEND Hospitalist
PROC: 009U3ZX Drainage of Spinal Canal, Percutaneous Approach, Diagnostic (ICD-10-PCS; principal; 2024-09-19)
DX: G72.41 Inclusion body myositis [IBM] (principal); E43 Unspecified severe protein-calorie malnutrition; G93.40 Encephalopathy, unspecified; F05 Delirium due to known physiological condition; R47.01 Aphasia; F03.C11 Unspecified dementia, severe, with agitation; Z68.1 Body mass index [BMI] 19.9 or less, adult; F10.21 Alcohol dependence, in remission; Z51.5 Encounter for palliative care; Z66 Do not resuscitate; E88.A Wasting disease (syndrome) due to underlying condition; I10 Essential (primary) hypertension; R53.81 Other malaise; H91.90 Unspecified hearing loss, unspecified ear; R29.6 Repeated falls; R26.81 Unsteadiness on feet; E78.5 Hyperlipidemia, unspecified; M50.30 Other cervical disc degeneration, unspecified cervical region; N32.89 Other specified disorders of bladder; Z91.81 History of falling; Z79.82 Long term (current) use of aspirin; Z79.899 Other long term (current) drug therapy
CPT/HCPCS: 36415; 70450; 71045; 72125; 80053; 80306; 80320; 81003; 82140; 82607; 82746; 82945; 84145; 84157; 84443; 84484; 85025; 85379; 85610; 85730; 86788; 86789; 87070; 87102; 87116; 87205; 87206; 87496; 87498; 87529; 87798; 88108; 89050; 93005; 93306; 95816; 96361; 96372; 96374; 99285